=== PATIENT | female | born 1990 | race American Indian/Alaskan Native ===

== ENCOUNTER 2019-01-26 18:25 | Emergency (ER) | payer SELFPAY ==
[2019-01-26 19:14] VITALS: BP 135/86
== END 2019-01-26 19:29 | disposition left against medical advice (07) ==
LOC: ED 18:25
DX: R45.851 Suicidal ideations (principal); Z53.21 Procedure and treatment not carried out due to patient leaving prior to being seen by health care provider

== ENCOUNTER 2020-09-16 07:49 | Emergency (ER) | payer SELFPAY ==
[2020-09-16] MEDS ORDERED: ONDANSETRON 4 MG/2 ML INJ IV ONE (08:07)
[2020-09-16] MEDS ORDERED: SODIUM CHLORIDE 0.9% 1000 ML 1,000 ML IV ONE (08:07)
[2020-09-16 08:16] LABS: Basophils # (Auto) 0.1 K/mm3 (0.0-0.1); Basophils % (Auto) 1.1 % (0.0-1.8); Eosinophils % (Auto) 0.7 % (0.0-4.3); Hematocrit 43.9 % (30.3-42.9); Hemoglobin 14.9 gm/dl (10.1-14.3); Lymphocytes % (Auto) 49.8 % (13.4-35.0); Mean Corpuscular HGB Conc 34 % (30-34); Mean Corpuscular Volume 84 fl (79-97); Monocytes # (Auto) 0.6 K/mm3 (0.0-0.8); Monocytes % (Auto) 9.1 % (0.0-7.3); Platelet Count 429 K/mm3 (140-440); Red Blood Count 5.25 M/mm3 (3.65-5.03); Red Cell Distribution Width 13.8 % (13.2-15.2)
--- NOTE | 2020-09-16 08:16 | Emergency Department Report ---
ED General Adult HPI - General Chief complaint: Nausea/Vomiting/Diarrhea Stated complaint: VOMIT/NAUSEA Time Seen by Provider: 09/16/20 08:04 Source: patient Mode of arrival: Ambulatory Limitations: No Limitations - History of Present Illness Initial comments: 29-year-old female that refers nausea and vomiting intermittently for the past few days without diarrhea or significant abdominal pain. She states she takes the control pill and has not observed any change in her menstrual pattern. She has had no fever. She does not complain of headache at this time. Apparently she was here for similar symptoms in the past and was treated symptomatically. Her laboratory work-up at that time was essentially unrevealing. She does not complain of any type symptoms. She does not refer significant cough. -: Gradual, days(s) Severity scale (0 -10): 0 Associated Symptoms: denies other symptoms, nausea/vomiting Treatments Prior to Arrival: none - Related Data Previous Rx's Medication Instructions Recorded Last Taken Type Ondansetron [Zofran Odt] 4 mg PO Q8HR PRN #15 tab.rapdis 05/14/20 Unknown Rx Ondansetron [Zofran Odt] 4 mg PO Q8HR #7 tab.rapdis 09/16/20 Unknown Rx Allergies Allergy/AdvReac Type Severity Reaction Status Date / Time No Known Allergies Allergy Verified 05/14/20 02:52 ED Review of Systems ROS: Stated complaint: VOMIT/NAUSEA Other details as noted in HPI Constitutional: denies: chills, fever Eyes: denies: eye pain, eye discharge, vision change ENT: denies: ear pain, throat pain Respiratory: denies: cough, shortness of breath, wheezing Cardiovascular: denies: chest pain, palpitations Endocrine: no symptoms reported Gastrointestinal: nausea, vomiting. denies: abdominal pain, diarrhea Genitourinary: denies: urgency, dysuria, discharge, abnormal menses Musculoskeletal: denies: back pain, joint swelling, arthralgia Skin: denies: rash, lesions Neurological: denies: headache, weakness, paresthesias Psychiatric: denies: anxiety, depression Hematological/Lymphatic: denies: easy bleeding, easy bruising ED Past Medical Hx - Past Medical History Previous Medical History?: Yes Additional medical history: Vaginal delivery x 1 - Surgical History Past Surgical History?: No Additional Surgical History: pt denies - Social History Smoking Status: Never Smoker Substance Use Type: Alcohol - Medications Home Medications: Home Medications Medication Instructions Recorded Confirmed Last Taken Type Ondansetron [Zofran Odt] 4 mg PO Q8HR PRN #15 tab.rapdis 05/14/20 Unknown Rx Ondansetron [Zofran Odt] 4 mg PO Q8HR #7 tab.rapdis 09/16/20 Unknown Rx ED Physical Exam - General Limitations: No Limitations General appearance: alert, in no apparent distress - Head Head exam: Present: atraumatic, normocephalic - Eye Eye exam: Present: normal appearance. Absent: scleral icterus - ENT ENT exam: Present: mucous membranes moist - Neck Neck exam: Present: normal inspection - Respiratory Respiratory exam: Present: normal lung sounds bilaterally. Absent: respiratory distress - Cardiovascular Cardiovascular Exam: Present: normal rhythm, tachycardia (Heart rate 100-105 on my encounter). Absent: systolic murmur, diastolic murmur, rubs, gallop - GI/Abdominal GI/Abdominal exam: Present: soft, normal bowel sounds. Absent: distended, tenderness, guarding, rebound, rigid - Extremities Exam Extremities exam: Present: normal inspection - Back Exam Back exam: Present: normal inspection - Neurological Exam Neurological exam: Present: alert, oriented X3, CN II-XII intact. Absent: motor sensory deficit - Psychiatric Psychiatric exam: Present: normal affect, normal mood - Skin Skin exam: Present: warm, dry, intact, normal color. Absent: rash ED Course Vital Signs 09/16/20 09/16/20 09/16/20 07:51 08:05 08:30 Temperature 98.0 F Pulse Rate 122 H 96 H Respiratory 20 14 13 Rate Blood Pressure 128/90 Blood Pressure 125/91 [Right] O2 Sat by Pulse 98 95 Oximetry 09/16/20 09/16/20 09/16/20 09:00 09:30 09:35 Temperature Pulse Rate 94 H Respiratory 13 14 Rate Blood Pressure 117/82 103/70 Blood Pressure [Right] O2 Sat by Pulse 100 Oximetry 09/16/20 09/16/20 09/16/20 10:02 10:30 11:00 Temperature Pulse Rate 103 H 120 H Respiratory 16 17 Rate Blood Pressure 103/70 109/71 103/70 Blood Pressure [Right] O2 Sat by Pulse 100 97 99 Oximetry 09/16/20 09/16/20 09/16/20 11:30 12:00 12:37 Temperature Pulse Rate 94 H 102 H 101 H Respiratory 15 15 Rate Blood Pressure 119/66 99/52 Blood Pressure [Right] O2 Sat by Pulse 99 98 Oximetry 09/16/20 13:00 Temperature Pulse Rate 103 H Respiratory 15 Rate Blood Pressure 126/91 Blood Pressure [Right] O2 Sat by Pulse 99 Oximetry - Reevaluation(s) Reevaluation #1: Heart rate now 93. No further nausea. Patient ready for discharge. 09/16/20 13:31 ED Medical Decision Making - Lab Data Result diagrams: 09/16/20 07:58 09/16/20 08:09 Laboratory Results - last 24 hr 09/16/20 07:58 WBC 6.1 RBC 5.25 H Hgb 14.9 H Hct 43.9 H MCV 84 MCH 29 MCHC 34 RDW 13.8 Plt Count 429 Lymph % (Auto) 49.8 H [place] % (Auto) 9.1 H Eos % (Auto) 0.7 Baso % (Auto) 1.1 Lymph # (Auto) 3.0 [place] # (Auto) 0.6 Eos # (Auto) 0.0 Baso # (Auto) 0.1 Seg Neutrophils % 39.3 L Seg Neutrophils # 2.4 Laboratory Results - last 24 hr 09/16/20 09/16/20 09/16/20 07:58 07:58 08:09 WBC 6.1 RBC 5.25 H Hgb 14.9 H Hct 43.9 H MCV 84 MCH 29 MCHC 34 RDW 13.8 Plt Count 429 Lymph % (Auto) 49.8 H [place] % (Auto) 9.1 H Eos % (Auto) 0.7 Baso % (Auto) 1.1 Lymph # (Auto) 3.0 [place] # (Auto) 0.6 Eos # (Auto) 0.0 Baso # (Auto) 0.1 Seg Neutrophils % 39.3 L Seg Neutrophils # 2.4 Sodium 144 Potassium 4.4 Chloride 102.1 Carbon Dioxide 27 Anion Gap 19 BUN 8 Creatinine 0.6 Estimated GFR > 60 BUN/Creatinine Ratio 13 Glucose 125 H Calcium 10.2 Magnesium 2.00 Total Bilirubin 0.30 Direct Bilirubin < 0.2 Indirect Bilirubin 0.1 AST 38 ALT 39 Alkaline Phosphatase 81 Total Protein 8.0 Albumin 5.1 H Albumin/Globulin Ratio 1.8 Lipase 26 26 HCG, Qual Urine Color Urine Turbidity Urine pH Ur Specific [place] Urine Protein Urine Glucose (UA) Urine Ketones Urine Blood Urine Nitrite Urine Bilirubin Urine Urobilinogen Ur Leukocyte Esterase Urine WBC (Auto) Urine RBC (Auto) U Epithel Cells (Auto) Urine Mucus Urine HCG, Qual Urine Opiates Screen Urine Methadone Screen Ur Barbiturates Screen Ur Phencyclidine Scrn Ur Amphetamines Screen U Benzodiazepines Scrn Urine Cocaine Screen U Marijuana (THC) Screen Drugs of Abuse Note 09/16/20 09/16/20 09/16/20 08:09 Unknown Unknown WBC RBC Hgb Hct MCV MCH MCHC RDW Plt Count Lymph % (Auto) [place] % (Auto) Eos % (Auto) Baso % (Auto) Lymph # (Auto) [place] # (Auto) Eos # (Auto) Baso # (Auto) Seg Neutrophils % Seg Neutrophils # Sodium Potassium Chloride Carbon Dioxide Anion Gap BUN Creatinine Estimated GFR BUN/Creatinine Ratio Glucose Calcium Magnesium Total Bilirubin Direct Bilirubin Indirect Bilirubin AST ALT Alkaline Phosphatase Total Protein Albumin Albumin/Globulin Ratio Lipase HCG, Qual Negative Urine Color Yellow Urine Turbidity Clear Urine pH 8.0 H Ur Specific Dell 1.016 Urine Protein 30 mg/dl Urine Glucose (UA) Neg Urine Ketones Neg Urine Blood Neg Urine Nitrite Neg Urine Bilirubin Neg Urine Urobilinogen < 2.0 Ur Leukocyte Esterase Neg Urine WBC (Auto) < 1.0 Urine RBC (Auto) 1.0 U Epithel Cells (Auto) 2.0 Urine Mucus Few Urine HCG, Qual Negative Urine Opiates Screen Negative Urine Methadone Screen Negative Ur Barbiturates Screen Negative Ur Phencyclidine Scrn Negative Ur Amphetamines Screen Negative U Benzodiazepines Scrn Negative Urine Cocaine Screen Negative U Marijuana (THC) Screen Negative Drugs of Abuse Note Disclamer - EKG Data -: EKG Interpreted by Me EKG shows normal: sinus rhythm, axis, intervals, QRS complexes, ST-T waves Rate: tachycardia - EKG Data Interpretation: normal EKG (Essentially normal except for sinus tachycardia) Critical care attestation.: If time is entered above; I have spent that time in minutes in the direct care of this critically ill patient, excluding procedure time. ED Disposition Clinical Impression: Dehydration Vomiting Qualifiers: Vomiting type: unspecified Vomiting Intractability: non-intractable Nausea presence: with nausea Qualified Code(s): R11.2 - Nausea with vomiting, unspecified Disposition: DC- TO HOME OR SELFCARE Is pt being admited?: No Does the pt Need Aspirin: No Condition: Stable Instructions: Nausea and Vomiting, Adult, Dehydration, Adult Additional Instructions: Return any acute change or problem. Prescription for nausea if needed. Follow- up with primary care physician. Prescriptions: Ondansetron [Zofran Odt] 4 mg PO Q8HR #7 tab.rapdis Referrals: PRIMARY CARE, [Primary Care Provider] - 2-3 Days Time of Disposition: 13:33
[2020-09-16 08:41] LABS: Alanine Aminotransferase 39 units/L (7-56); Albumin 5.1 g/dL (3.9-5); Blood Urea Nitrogen 8 mg/dL (7-17); Calcium 10.2 mg/dL (8.4-10.2); Hemolysis Index 5
[2020-09-16 08:50] LABS: BUN/Creatinine Ratio 13; Bilirubin,Direct < 0.2 mg/dL (0-0.2)
[2020-09-16 10:23] LABS: Bilirubin,Urine NEG (Negative); Blood,Urine NEG (Negative); Color,Urine Yellow (Yellow); Mucus,Urine FEW /HPF; Urobilinogen,Urine < 2.0 mg/dL (<2.0); WBC,Urine < 1.0 /HPF (0.0-6.0)
[2020-09-16 10:30] LABS: Amphetamine Screen,Urine Negative; Benzodiazepines Screen,Urine Negative; Cannabinoid Screen,Urine Negative; Cocaine Screen,Urine Negative; Methadone Screen,Urine Negative; Opiate Screen,Urine Negative
[2020-09-16 10:32] LABS: HCG Qualitative,Urine Negative (Negative)
[2020-09-16 13:30] VITALS: BP 126/91
== END 2020-09-16 13:00 | disposition home or self-care (01) ==
LOC: ED 07:49
DX: E86.0 Dehydration (principal); R11.2 Nausea with vomiting, unspecified; Z79.899 Other long term (current) drug therapy
CPT/HCPCS: 36415; 80048; 80076; 80307; 81001; 81025; 83690; 83735; 84703; 85025; 93005; 96361; 96374; 99283; J2405; J7030

== ENCOUNTER 2020-10-03 14:39 | Inpatient (IN) | payer SELFPAY ==
[2020-10-03] MEDS ORDERED: ONDANSETRON 4 MG ODT TAB ONE (15:21)
[2020-10-03] MEDS ORDERED: ONDANSETRON 4 MG ODT TAB PO ONE (15:24)
--- NOTE | 2020-10-03 15:24 | Event Note ---
ED Screening Note Date of service: 10/03/20 Time: 15:23 ED Screening Note: 29-year-old -Algerian female presents to the emergency room complaining of nausea vomiting since last night denies any diarrhea. This initial assessment/diagnostic orders/clinical plan/treatment(s) is/are subject to change based on patients health status, clinical progression and re- assessment by fellow clinical providers in the ED. Further treatment and workup at subsequent clinical providers discretion. Patient/guardian urged not to elope from the ED as their condition may be serious if not clinically assessed and managed. Initial orders include:
[2020-10-03 16:00] LABS: Basophils % (Auto) 0.6 % (0.0-1.8); Eosinophils # (Auto) 0.1 K/mm3 (0.0-0.4); Eosinophils % (Auto) 1.3 % (0.0-4.3); Hematocrit 41.1 % (30.3-42.9); Hemoglobin 14.3 gm/dl (10.1-14.3); Lymphocytes % (Auto) 26.3 % (13.4-35.0); Mean Corpuscular HGB Conc 35 % (30-34); Mean Corpuscular Volume 83 fl (79-97); Monocytes # (Auto) 0.5 K/mm3 (0.0-0.8); Monocytes % (Auto) 6.9 % (0.0-7.3); Platelet Count 400 K/mm3 (140-440); Red Blood Count 4.97 M/mm3 (3.65-5.03); Red Cell Distribution Width 13.7 % (13.2-15.2)
[2020-10-03 16:25] LABS: Alanine Aminotransferase 37 units/L (7-56); Albumin 4.7 g/dL (3.9-5); Blood Urea Nitrogen 9 mg/dL (7-17); Calcium 9.5 mg/dL (8.4-10.2); Hemolysis Index 5
[2020-10-03 16:26] LABS: BUN/Creatinine Ratio 15
[2020-10-03] MEDS ORDERED: METOCLOPRAMIDE 10 MG/2 ML INJ IV ONE (17:29)
[2020-10-03] MEDS ORDERED: PANTOPRAZOLE 40 MG INJ IV ONE (17:29)
[2020-10-03] MEDS ORDERED: diphenhydrAMINE 50 MG/ML VIAL IV ONE (17:29)
[2020-10-03] MEDS ORDERED: SODIUM CHLORIDE 0.9% 1000 ML 1,000 ML IV ONE ×2 (17:29→20:38)
[2020-10-03] MEDS ORDERED: ONDANSETRON 4 MG/2 ML INJ IV ONE (18:53)
[2020-10-03 19:17] LABS: Bilirubin,Urine NEG (Negative); Blood,Urine NEG (Negative); Color,Urine Yellow (Yellow); Mucus,Urine FEW /HPF; Urobilinogen,Urine < 2.0 mg/dL (<2.0); WBC,Urine < 1.0 /HPF (0.0-6.0)
--- NOTE | 2020-10-03 19:18 | Emergency Department Report ---
<ERIC ROJO - Last Filed: 10/03/20 19:18> ED General Adult HPI - General Chief complaint: Nausea/Vomiting/Diarrhea Stated complaint: VOMITING Time Seen by Provider: 10/03/20 15:22 Source: patient Mode of arrival: Ambulatory Limitations: No Limitations - History of Present Illness Initial comments: Patient is a 29-year-old female presents emergency room complaints of nausea vomiting that began at midnight last night. She has had multiple episodes of vomiting and is unable to tolerate p.o. intake. She states that she has had a couple episodes of diarrhea. She states that she has generalized abdominal pain. She denies any fever, dysuria, hematochezia, hematemesis, melena. She denies any past abdominal surgical history. She denies any sick contacts, recent travel, antibiotic use. No past medical history. No allergies to medications. She states her last menstrual cycle was 09/02/2020. She is a non- smoker. She endorses alcohol use twice a week. She states that she had 3 glasses of wine last night. Severity scale (0 -10): 2 - Related Data Previous Rx's Medication Instructions Recorded Last Taken Type Ondansetron [Zofran Odt] 4 mg PO Q8HR PRN #15 tab.rapdis 05/14/20 Unknown Rx Ondansetron [Zofran Odt] 4 mg PO Q8HR #7 tab.rapdis 09/16/20 Unknown Rx Allergies Allergy/AdvReac Type Severity Reaction Status Date / Time No Known Allergies Allergy Verified 05/14/20 02:52 ED Review of Systems Comment: All other systems reviewed and negative ED Past Medical Hx - Past Medical History Previous Medical History?: No Additional medical history: pt denies - Surgical History Additional Surgical History: pt denies - Social History Smoking Status: Never Smoker - Medications Home Medications: Home Medications Medication Instructions Recorded Confirmed Last Taken Type Ondansetron [Zofran Odt] 4 mg PO Q8HR PRN #15 tab.rapdis 05/14/20 Unknown Rx Ondansetron [Zofran Odt] 4 mg PO Q8HR #7 tab.rapdis 09/16/20 Unknown Rx ED Physical Exam - General Limitations: No Limitations General appearance: alert, other (actively vomiting) - Head Head exam: Present: atraumatic, normocephalic - Eye Eye exam: Present: normal appearance - ENT ENT exam: Present: mucous membranes dry - Respiratory Respiratory exam: Present: normal lung sounds bilaterally. Absent: respiratory distress, wheezes, rales, rhonchi, stridor, chest wall tenderness, accessory muscle use, decreased breath sounds, prolonged expiratory - Cardiovascular Cardiovascular Exam: Present: regular rate, normal rhythm, normal heart sounds. Absent: systolic murmur, diastolic murmur, rubs, gallop - GI/Abdominal GI/Abdominal exam: Present: soft, tenderness (mild generalized), normal bowel sounds. Absent: distended, guarding, rebound, rigid - Neurological Exam Neurological exam: Present: alert, oriented X3 - Psychiatric Psychiatric exam: Present: normal affect, normal mood - Skin Skin exam: Present: warm, dry, intact ED Medical Decision Making - Lab Data Result diagrams: 10/03/20 15:32 10/03/20 15:32 Lab Results 10/03/20 10/03/20 Range/Units 15:32 15:32 WBC 7.6 (4.5-11.0) K/mm3 RBC 4.97 (3.65-5.03) M/mm3 Hgb 14.3 (10.1-14.3) gm/dl Hct 41.1 (30.3-42.9) % MCV 83 (79-97) fl MCH 29 (28-32) pg MCHC 35 H (30-34) % RDW 13.7 (13.2-15.2) % Plt Count 400 (140-440) K/mm3 Lymph % (Auto) 26.3 (13.4-35.0) % [place] % (Auto) 6.9 (0.0-7.3) % Eos % (Auto) 1.3 (0.0-4.3) % Baso % (Auto) 0.6 (0.0-1.8) % Lymph # (Auto) 2.0 (1.2-5.4) K/mm3 [place] # (Auto) 0.5 (0.0-0.8) K/mm3 Eos # (Auto) 0.1 (0.0-0.4) K/mm3 Baso # (Auto) 0.0 (0.0-0.1) K/mm3 Seg Neutrophils % 64.9 (40.0-70.0) % Seg Neutrophils # 4.9 (1.8-7.7) K/mm3 Sodium 144 (137-145) mmol/L Potassium 3.8 (3.6-5.0) mmol/L Chloride 103.9 (98-107) mmol/L Carbon Dioxide 24 (22-30) mmol/L Anion Gap 20 mmol/L BUN 9 (7-17) mg/dL Creatinine 0.6 (0.6-1.2) mg/dL Estimated GFR > 60 ml/min BUN/Creatinine Ratio 15 % Glucose 95 (65-100) mg/dL Calcium 9.5 (8.4-10.2) mg/dL Total Bilirubin 0.20 (0.1-1.2) mg/dL AST 27 (5-40) units/L ALT 37 (7-56) units/L Alkaline Phosphatase 79 (35-129) units/L Total Protein 7.8 (6.3-8.2) g/dL Albumin 4.7 (3.9-5) g/dL Albumin/Globulin Ratio 1.5 % Lipase 22 (13-60) units/L - Medical Decision Making Patient is a 29-year-old female presents emergency room complaints of nausea vomiting that began at midnight last night. She has had multiple episodes of vomiting and is unable to tolerate p.o. intake. She states that she has had a couple episodes of diarrhea. She states that she has generalized abdominal pain. She denies any fever, dysuria, hematochezia, hematemesis, melena. She denies any past abdominal surgical history. She denies any sick contacts, recent travel, antibiotic use. No past medical history. No allergies to medications. She states her last menstrual cycle was 09/02/2020. She is a non- smoker. She endorses alcohol use twice a week. She states that she had 3 glasses of wine last night. Vitals with mild tachycardia, otherwise stable. Labs are within normal limits. Patient given multiple antiemetics and continues to have vomiting. CT abdomen pelvis ordered to rule out any intra-abdominal pathology. Patient signed out to Keya Vazquez PA-C pending CT abdomen pelvis results - Differential Diagnosis gastroenteritis, gastritis, colitis, appendicitis, cholecystitis, viral ED Disposition Clinical Impression: Coffee ground emesis, Intractable nausea and vomiting, Rectal abscess Abdominal pain Qualifiers: Abdominal location: generalized Qualified Code(s): R10.84 - Generalized abdominal pain Fever Qualifiers: Fever type: unspecified Qualified Code(s): R50.9 - Fever, unspecified Disposition: DC-09 OP ADMIT IP TO THIS HOSP Condition: Critical <JOE VAZQUEZ - Last Filed: 10/03/20 20:37> ED Medical Decision Making - Lab Data Result diagrams: 10/03/20 15:32 10/03/20 15:32 - Radiology Data Radiology results: report reviewed Referring Physician:ERIC ROJOPatient Name:CAPRICE HEPatient ID:[id number] of :[id number]:FemaleAccession:[id number] Date:[id number] Status:[place] [address] Cat Scan Report Signed Patient: CAPRICE HE MR#: [id number] : 1990 Acct:[id number] Age/Sex: 29 / F ADM Date: 10/03/20 Loc: ED Attending Dr: Ordering Physician: WILL RASHID Date of Service: 10/03/20 Procedure(s): CT abdomen pelvis w con Accession Number(s): [id number] cc: WILL RASHID CT ABDOMEN AND PELVIS WITH CONTRAST INDICATION / CLINICAL INFORMATION: n/v/d, abd pain. TECHNIQUE: Axial CT images were obtained through the abdomen and pelvis after IV contrast. All CT scans at this location are performed using CT dose reduction for ALARA by means of automated exposure control. COMPARISON: None available. FINDINGS: LOWER CHEST: No significant abnormality. LIVER: No significant abnormality. GALLBLADDER: No significant abnormality. BILE DUCTS: No significant abnormality. PANCREAS: No significant abnormality. SPLEEN: No significant abnormality. ADRENALS: No significant abnormality. RIGHT KIDNEY / URETER: No significant abnormality. LEFT KIDNEY / URETER: No significant abnormality. STOMACH / SMALL BOWEL: Small hiatal hernia. COLON: Thickening is noted throughout the colonic wall with edema. There is a 2.7 x 3.7 cm patulous area of the rectal vault to the right (series 2 image 144) which appears to be outlined by the colonic wall. Mild perirectal fat stranding is noted in this region. APPENDIX: The appendix is not well-visualized on this exam. There is no significant fat stranding noted in the right lower quadrant. PERITONEUM: No free fluid. No free air. No fluid collection. LYMPH NODES: No significant adenopathy. AORTA / ARTERIES: No significant abnormality. IVC / VEINS: No significant abnormality. URINARY BLADDER: No significant abnormality. REPRODUCTIVE ORGANS: Simple left ovarian cyst measures 4 cm. ADDITIONAL FINDINGS: None. SKELETAL SYSTEM: No significant abnormality. IMPRESSION: 1. Lopez colonic inflammatory changes and edema are noted which may represent an infectious/inflammatory colitis. 2. Patulous outpouching to the right of the rectal vault with mild local fat stranding may represent a large rectal diverticula versus developing rectal abscess. Clinical correlation is need ed. Signer Name: Cipriano Grande MD Signed: 10/03/2020 8:12 PM Workstation Name: [id number] Transcribed By: ROXANA Dictated By: CIPRIANO GRANDE Electronically Authenticated By: CIPRIANO GRANDE Signed Date/Time: 10/03/202011 DD/ 00 TD/TT: <DAMIR WINCHESTER III - Last Filed: 10/03/20 21:30> ED General Adult HPI - General PUI?: No ED Review of Systems ROS: Stated complaint: VOMITING Other details as noted in HPI ED Course Vital Signs 10/03/20 10/03/20 15:15 19:11 Temperature 98.3 F 99.1 F Pulse Rate 109 H 106 H Respiratory 18 17 Rate Blood Pressure 141/97 Blood Pressure 160/95 [Right] O2 Sat by Pulse 100 100 Oximetry - Reevaluation(s) Reevaluation #1: I reviewed the findings and management of this patient in real-time and I have personally seen and examined this patient and participated in the decision making for this patient with the [facility]. Patient is a 29-year-old female presents emergency room with complaints of nausea, vomiting, diarrhea, generalized abdominal pain. Patient has labs done which were essentially unremarkable. Patient had multiple bouts of vomiting in the ER. Patient has intractable nausea and vomiting. Patient complained of coffee-ground emesis while in the ER. I examined the patient. Patient's lung sounds are clear. Patient has generalized abdominal tenderness. Patient's lung sounds are clear. Patient's CV exam shows normal S1-S2. No murmurs noted. Patient had a rectal exam done by the [facility] and a was negative for occult blood. Patient had a Hemoccult done on her vomitus and it was positive for occult blood. Patient had a CT scan of the abdomen done which showed pancolitis and forming rectal abscess. Surgery consulted and surgery recommends admission with IV antibiotics and they will see the patient in morning. Patient admitted to the hospitalist service. I discussed all results with patient. I discussed plan of care with patient. Patient agrees with plan of care and admission. Patient to be admitted to the hospitalist service. 10/03/20 21:21 - Consultations Consultation #1: Discussed case with general surgery. General surgery recommends admission and IV antibiotics and will see the patient in the morning. 10/03/20 21:10 Consultation #2: Hospitalist consulted for admission. Hospitalist to admit patient. 10/03/20 21:18 ED Medical Decision Making - Lab Data Result diagrams: 10/03/20 15:32 10/03/20 15:32 Critical Care Time: Yes Critical care time in (mins) excluding proc time.: 35 Critical care attestation.: If time is entered above; I have spent that time in minutes in the direct care of this critically ill patient, excluding procedure time. Critical Care Time: 35 minutes ED Disposition Is pt being admited?: Yes Does the pt Need Aspirin: No Time of Disposition: 21:29
[2020-10-03 19:25] LABS: HCG Qualitative,Urine Negative (Negative)
[2020-10-03] MEDS ORDERED: PROCHLORPERAZINE EDISYLATE 10 MG/2 ML VIAL IV ONE (19:26)
--- NOTE | 2020-10-03 20:16 | Cat Scan Report ---
CT ABDOMEN AND PELVIS WITH CONTRAST INDICATION / CLINICAL INFORMATION: n/v/d, abd pain. TECHNIQUE: Axial CT images were obtained through the abdomen and pelvis after IV contrast. All CT scans at this location are performed using CT dose reduction for ALARA by means of automated exposure control. COMPARISON: None available. FINDINGS: LOWER CHEST: No significant abnormality. LIVER: No significant abnormality. GALLBLADDER: No significant abnormality. BILE DUCTS: No significant abnormality. PANCREAS: No significant abnormality. SPLEEN: No significant abnormality. ADRENALS: No significant abnormality. RIGHT KIDNEY / URETER: No significant abnormality. LEFT KIDNEY / URETER: No significant abnormality. STOMACH / SMALL BOWEL: Small hiatal hernia. COLON: Thickening is noted throughout the colonic wall with edema. There is a 2.7 x 3.7 cm patulous a stephen of the rectal vault to the right (series 2 image 144) which appears to be outlined by the colonic wall. Mild perirectal fat stranding is noted in this region. APPENDIX: The appendix is not well-visualized on this exam. There is no significant fat stranding not ed in the right lower quadrant. PERITONEUM: No free fluid. No free air. No fluid collection. LYMPH NODES: No significant adenopathy. AORTA / ARTERIES: No significant abnormality. IVC / VEINS: No significant abnormality. URINARY BLADDER: No significant abnormality. REPRODUCTIVE ORGANS: Simple left ovarian cyst measures 4 cm. ADDITIONAL FINDINGS: None. SKELETAL SYSTEM: No significant abnormality. IMPRESSION: 1. Lopez colonic inflammatory changes and edema are noted which may represent an infectious/inflammator y colitis. 2. Patulous outpouching to the right of the rectal vault with mild local fat stranding may represent a large rectal diverticula versus developing rectal abscess. Clinical correlation is needed. Signer Name: Cipriano Perez MD Signed: 10/03/2020 8:12 PM Workstation Name: [id number]
[2020-10-03] MEDS ORDERED: metroNIDAZOLE/NS 500 MG/100 ML 500 MG/100 ML BAG IV ONE (20:38)
[2020-10-03] MEDS ORDERED: MORPHINE 2 MG/1 ML INJ IV PRN (21:53)
[2020-10-03] MEDS ORDERED: ACETAMINOPHEN 325 MG TAB PO PRN (21:53)
[2020-10-03] MEDS ORDERED: ONDANSETRON 4 MG/2 ML INJ IV PRN (21:53)
--- NOTE | 2020-10-03 22:00 | History and Physical Report ---
History of Present Illness Date of examination: 10/03/20 Date of admission: 10/03/2020 Chief complaint: Nausea and Vomiting Abdominal pain History of present illness: 29-year-old -[place] female presented to the emergency room today complaining of for nausea and vomiting and associated abdominal pain. Patient has been ongoing since midnight. Patient has also been having coffee-ground emesis. She has been unable to tolerate oral intake and has also had a few episodes of diarrhea. Abdominal pain is said to be generalized, no known relieving or exacerbating factor. She denies any recent travel no sick contacts. Denies any hematuria or dysuria, no fever or chills, no bright red blood per rectum and no melena. Patient denies any chest pain or shortness of breath, no headache or dizziness. She denies any recent use of antibiotics. Last menstrual period was 09/02/2020 Work-up in the emergency room today CT scan of the abdomen and pelvis reveals pancolitis and a possible developing rectal abscess. General surgeon Dr. Mckeon has been consulted by the ER physician. Patient has been started on IV fluid, IV analgesic medication and empiric IV antibiotics. Past History Past Medical History: No medical history Past Surgical History: No surgical history Social history: no significant social history Family history: no significant family history Medications and Allergies Allergies Allergy/AdvReac Type Severity Reaction Status Date / Time No Known Allergies Allergy Verified 05/14/20 02:52 Home Medications Medication Instructions Recorded Confirmed Last Taken Type Ondansetron [Zofran Odt] 4 mg PO Q8HR PRN #15 tab.rapdis 05/14/20 Unknown Rx Ondansetron [Zofran Odt] 4 mg PO Q8HR #7 tab.rapdis 09/16/20 Unknown Rx Active Meds: Active Medications Acetaminophen (Tylenol) 650 mg PO Q4H PRN PRN Reason: Pain MILD(1-3)/Fever >100.5/JOYNER Sodium Chloride (Nacl 0.9% 1000 Ml) 1,000 mls @ 125 mls/hr IV DIRECT DOV Morphine Sulfate (Morphine) 2 mg IV Q4H PRN PRN Reason: Pain, Moderate (4-6) Ondansetron HCl (Zofran) 4 mg IV Q8H PRN PRN Reason: Nausea And Vomiting Sodium Chloride (Sodium Chloride Flush Syringe 10 Ml) 10 ml IV BID DOV Sodium Chloride (Sodium Chloride Flush Syringe 10 Ml) 10 ml IV PRN PRN PRN Reason: LINE FLUSH Review of Systems Constitutional: fever, no chills Ears, nose, mouth and throat: no nasal congestion, no sore throat Cardiovascular: no chest pain, no palpitations Respiratory: no cough, no shortness of breath Gastrointestinal: abdominal pain, nausea, vomiting, coffee ground emesis Genitourinary Female: no dysuria, no urinary frequency, no hematuria, no nocturia Musculoskeletal: no neck pain, no low back pain Integumentary: no rash, no pruritis Neurological: no headaches, no confusion Psychiatric: no anxiety, no depression Exam - Constitutional Vitals: Temp Pulse Resp BP Pulse Ox 99.1 F 106 H 17 160/95 100 10/03/20 19:11 10/03/20 19:11 10/03/20 19:11 10/03/20 19:11 10/03/20 19:11 General appearance: Present: no acute distress, well-nourished - EENT Eyes: Present: PERRL, EOM intact. Absent: scleral icterus ENT: hearing intact, clear oral mucosa, dentition normal - Neck Neck: Present: supple, normal ROM - Respiratory Respiratory effort: normal Respiratory: bilateral: CTA - Cardiovascular Rhythm: regular Heart Sounds: Present: S1 & S2. Absent: gallop, systolic murmur, diastolic murmur, rub - Extremities Extremities: no ischemia, pulses intact, pulses symmetrical, No edema, Full ROM Peripheral Pulses: within normal limits - Abdominal General gastrointestinal: Present: soft, non-tender, non-distended, normal bowel sounds. Absent: mass - Integumentary Integumentary: Present: clear, warm, dry. Absent: rash - Musculoskeletal Musculoskeletal: strength equal bilaterally - Psychiatric Psychiatric: appropriate mood/affect, intact judgment & insight, memory intact, cooperative - Neurologic Neurologic: CNII-XII intact, no focal deficits, moves all extremities Results - Labs CBC & Chem 7: 10/03/20 15:32 10/03/20 15:32 Labs: Abnormal lab results 10/03/20 10/03/20 Range/Units 15:32 19:01 MCHC 35 H (30-34) % Urine pH 8.0 H (5.0-7.0) Assessment and Plan - Patient Problems (1) Abdominal pain Current Visit: Yes Status: Acute Qualifiers: Abdominal location: generalized Qualified Code(s): R10.84 - Generalized abdominal pain Plan to address problem: Possibly secondary to the intractable nausea and vomiting ,pancolitis. Patient placed on IV analgesic medication. (2) Coffee ground emesis Current Visit: Yes Status: Acute Plan to address problem: Possibly secondary to the intractable nausea and vomiting. We will place a consult to gastroenterology for evaluation. We will place patient on proton pump inhibitor. Patient made n.p.o. (3) Intractable nausea and vomiting Current Visit: Yes Status: Acute Plan to address problem: Patient has been placed on IV Zofran as needed. (4) Rectal abscess Current Visit: Yes Status: Acute Plan to address problem: Patient placed on empiric IV antibiotics. We await's evaluation and recommendations from general surgery. (5) DVT prophylaxis Current Visit: Yes Status: Acute Plan to address problem: Patient placed on sequential compression device. (6) Full code status Current Visit: Yes Status: Acute
[2020-10-04] MEDS: SODIUM CHLORIDE 0.9% 1000 ML 1,000 ML IV SCH ×2 (01:32→09:24)
[2020-10-04] MEDS ORDERED: PIPERACIL/TAZOBACTA 4.5/NS 100 4.5 GM/100 ML VIAL IV SCH (06:00)
[2020-10-04 07:43] LABS: Basophils % (Auto) 0.1 % (0.0-1.8); Hematocrit 35.6 % (30.3-42.9); Hemoglobin 11.6 gm/dl (10.1-14.3); Lymphocytes # (Auto) 1.4 K/mm3 (1.2-5.4); Mean Corpuscular HGB Conc 33 % (30-34); Mean Corpuscular Volume 84 fl (79-97); Monocytes # (Auto) 0.9 K/mm3 (0.0-0.8); Monocytes % (Auto) 5.4 % (0.0-7.3); Platelet Count 352 K/mm3 (140-440); Red Blood Count 4.25 M/mm3 (3.65-5.03); Red Cell Distribution Width 13.3 % (13.2-15.2)
[2020-10-04 07:50] LABS: INR 1.07 (0.87-1.13)
[2020-10-04 07:54] LABS: Blood Urea Nitrogen 6 mg/dL (7-17); Calcium 8.4 mg/dL (8.4-10.2); Hemolysis Index 5
[2020-10-04 08:01] LABS: BUN/Creatinine Ratio 10
[2020-10-04 08:27] VITALS: BP 107/67
[2020-10-04] MEDS ORDERED: PANTOPRAZOLE 40 MG INJ IV SCH (10:00)
--- NOTE | 2020-10-04 10:28 | Consultation ---
History of Present Illness Consult date: 10/04/20 Reason for consult: other (I am asked to evaluate this patient for a possible early perirectal abcess.) - History of present illness History of present illness: this is a very pleasant 29 year old female who present to the ER with nausea and vomiting, normal WBC, she had a CT of the abd and pelvis which was read as having some question of perirectal inflammation/stranding and concern for possible early perirectal abcess, I have reviewed the CT and spoken with the patrol conductor Radiologist and reviewed the CT and it demonstrates a left ovarian cyst, the anus and rectum appear normal, the colon is mildly thickened but this can be a normal variant according to the Radiologist patrol conductor. She feels better today with hydration, her pain is less, She does NOT have any evidence of perirectal abcess or divertuculum of rectum. She has not had her period for three weeks, she denies any family hx of inflamm bowel dz. Her WBC felipe to 16 today. Past History Past Medical History: No medical history Past Surgical History: No surgical history Social history: no significant social history Family history: no significant family history Medications and Allergies Allergies Allergy/AdvReac Type Severity Reaction Status Date / Time No Known Allergies Allergy Verified 05/14/20 02:52 Home Medications Medication Instructions Recorded Confirmed Last Taken Type Ondansetron [Zofran Odt] 4 mg PO Q8HR PRN #15 tab.rapdis 05/14/20 Unknown Rx Ondansetron [Zofran Odt] 4 mg PO Q8HR #7 tab.rapdis 09/16/20 Unknown Rx Active Meds: Active Medications Acetaminophen (Tylenol) 650 mg PO Q4H PRN PRN Reason: Pain MILD(1-3)/Fever >100.5/JOYNER Sodium Chloride (Nacl 0.9% 1000 Ml) 1,000 mls @ 125 mls/hr IV DIRECT DOV Last Admin: 10/04/20 09:24 Dose: 125 mls/hr Documented by: Piperacillin Sod/Tazobactam Sod (Zosyn/Ns 4.5gm/100ml) 4.5 gm in 100 mls @ 200 mls/hr IV Q8HR DOV; Protocol Last Admin: 10/04/20 05:30 Dose: 200 mls/hr Documented by: Morphine Sulfate (Morphine) 2 mg IV Q4H PRN PRN Reason: Pain, Moderate (4-6) Ondansetron HCl (Zofran) 4 mg IV Q8H PRN PRN Reason: Nausea And Vomiting Pantoprazole Sodium (Protonix) 40 mg IV BID [facility] Last Admin: 10/04/20 09:24 Dose: 40 mg Documented by: Sodium Chloride (Sodium Chloride Flush Syringe 10 Ml) 10 ml IV BID [facility] Last Admin: 10/04/20 09:27 Dose: 10 ml Documented by: Sodium Chloride (Sodium Chloride Flush Syringe 10 Ml) 10 ml IV PRN PRN PRN Reason: LINE FLUSH Review of Systems - Constitutional other (nausea and vomiting/ improved) Exam Vital Signs Temp Pulse Resp BP Pulse Ox 98.3 F 109 H 18 141/97 100 10/03/20 15:15 10/03/20 15:15 10/03/20 15:15 10/03/20 15:15 10/03/20 15:15 - General physical appearance Positive: no distress - Eyes Positive: PERRL, normal occular movement - ENT Positive: normal pinna, normal nares, normal mucosa, no hearing loss, no congestion - Respiratory Positive: normal expansion, normal respiratory effort, clear to auscultation - Cardiovascular Rhythm: other (sinus tach) Heart Sounds: Present: S1 & S2. Absent: rub, click - Extremities Extremities: no ischemia, pulses symmetrical, No edema Peripheral Pulses: within normal limits - Breasts Breasts: deferred - Abdomen Abdomen: Present: soft, bowel sounds normal, other (no rebound or guarding, mild tenderness to deep palpation LLQ) - Neurologic Neurologic: alert and oriented to time, place and person, motor strength and sensation are grossly intact - Psychiatric Psychiatric: appropriate mood/affect, intact judgment & insight Results - Labs 10/04/20 06:46 10/04/20 06:46 Abnormal lab results 10/03/20 10/03/20 10/04/20 Range/Units 15:32 19:01 06:46 WBC 16.9 H (4.5-11.0) K/mm3 MCH 27 L (28-32) pg MCHC 35 H (30-34) % Lymph % (Auto) 8.0 L (13.4-35.0) % [place] # (Auto) 0.9 H (0.0-0.8) K/mm3 Seg Neutrophils % 86.5 H (40.0-70.0) % Seg Neutrophils # 14.7 H (1.8-7.7) K/mm3 BUN (7-17) mg/dL Glucose (65-100) mg/dL Urine pH 8.0 H (5.0-7.0) 10/04/20 Range/Units 06:46 WBC (4.5-11.0) K/mm3 MCH (28-32) pg MCHC (30-34) % Lymph % (Auto) (13.4-35.0) % [place] # (Auto) (0.0-0.8) K/mm3 Seg Neutrophils % (40.0-70.0) % Seg Neutrophils # (1.8-7.7) K/mm3 BUN 6 L (7-17) mg/dL Glucose 124 H (65-100) mg/dL Urine pH (5.0-7.0) Diabetes panel 10/03/20 10/04/20 Range/Units 15:32 06:46 Sodium 144 141 (137-145) mmol/L Potassium 3.8 3.6 (3.6-5.0) mmol/L Chloride 103.9 105.8 (98-107) mmol/L Carbon Dioxide 24 25 (22-30) mmol/L BUN 9 6 L (7-17) mg/dL Creatinine 0.6 0.6 (0.6-1.2) mg/dL Glucose 95 124 H (65-100) mg/dL Calcium 9.5 8.4 (8.4-10.2) mg/dL AST 27 (5-40) units/L ALT 37 (7-56) units/L Alkaline Phosphatase 79 (35-129) units/L Total Protein 7.8 (6.3-8.2) g/dL Albumin 4.7 (3.9-5) g/dL Calcium panel 10/03/20 10/04/20 Range/Units 15:32 06:46 Calcium 9.5 8.4 (8.4-10.2) mg/dL Albumin 4.7 (3.9-5) g/dL Pituitary panel 10/03/20 10/04/20 Range/Units 15:32 06:46 Sodium 144 141 (137-145) mmol/L Potassium 3.8 3.6 (3.6-5.0) mmol/L Chloride 103.9 105.8 (98-107) mmol/L Carbon Dioxide 24 25 (22-30) mmol/L BUN 9 6 L (7-17) mg/dL Creatinine 0.6 0.6 (0.6-1.2) mg/dL Glucose 95 124 H (65-100) mg/dL Calcium 9.5 8.4 (8.4-10.2) mg/dL Adrenal panel 10/03/20 10/04/20 Range/Units 15:32 06:46 Sodium 144 141 (137-145) mmol/L Potassium 3.8 3.6 (3.6-5.0) mmol/L Chloride 103.9 105.8 (98-107) mmol/L Carbon Dioxide 24 25 (22-30) mmol/L BUN 9 6 L (7-17) mg/dL Creatinine 0.6 0.6 (0.6-1.2) mg/dL Glucose 95 124 H (65-100) mg/dL Calcium 9.5 8.4 (8.4-10.2) mg/dL Total Bilirubin 0.20 (0.1-1.2) mg/dL AST 27 (5-40) units/L ALT 37 (7-56) units/L Alkaline Phosphatase 79 (35-129) units/L Total Protein 7.8 (6.3-8.2) g/dL Albumin 4.7 (3.9-5) g/dL Assessment and Plan nausea and vomiting, left ovarian cyst, NO evidence of perirectal abcess on inflammed rectum as best as I can determine. I am OK with adv diet as tolerated, will follow.Consider GI evaluation.
--- NOTE | 2020-10-04 10:33 | Gastroenterology Consultation ---
History of Present Illness - Reason for Consult Consult date: 10/04/20 n/v/abd pain Requesting physician: ILENE VELASQUEZ - History of Present Illness The patient is a 29 yo female who presents with n/v and generalized abd discomfort for 1 day. Pt reports having recurrent episodes of n/v for the past several months, occurs a couple times per month with improvement in sx's over 1- 2 days. recurrent sx's prior to admission with n/v. reports generalized abd discomfort. Has 1-2 loose bm's per day, but denies diarrhea/hematochezia or bowel habit changes. ct scan on admission showed signs of jeffery-colitis and abnormal rectum (? developing abscess vs diverticulum per report). Denies family h/o IBD/colon cancer, no known sick contacts/recent abx use, or lower gi symptoms otherwise at this time. Past History Past Medical History: No medical history Past Surgical History: No surgical history Social history: no significant social history Family history: no significant family history Medications and Allergies Allergies Allergy/AdvReac Type Severity Reaction Status Date / Time No Known Allergies Allergy Verified 05/14/20 02:52 Home Medications Medication Instructions Recorded Confirmed Last Taken Type Ondansetron [Zofran Odt] 4 mg PO Q8HR PRN #15 tab.rapdis 05/14/20 Unknown Rx Ondansetron [Zofran Odt] 4 mg PO Q8HR #7 tab.rapdis 09/16/20 Unknown Rx Active Meds: Active Medications Acetaminophen (Tylenol) 650 mg PO Q4H PRN PRN Reason: Pain MILD(1-3)/Fever >100.5/JOYNER Sodium Chloride (Nacl 0.9% 1000 Ml) 1,000 mls @ 125 mls/hr IV DIRECT DOV Last Admin: 10/04/20 09:24 Dose: 125 mls/hr Documented by: Piperacillin Sod/Tazobactam Sod (Zosyn/Ns 4.5gm/100ml) 4.5 gm in 100 mls @ 200 mls/hr IV Q8HR DOV; Protocol Last Admin: 10/04/20 05:30 Dose: 200 mls/hr Documented by: Morphine Sulfate (Morphine) 2 mg IV Q4H PRN PRN Reason: Pain, Moderate (4-6) Ondansetron HCl (Zofran) 4 mg IV Q8H PRN PRN Reason: Nausea And Vomiting Pantoprazole Sodium (Protonix) 40 mg IV BID [facility] Last Admin: 10/04/20 09:24 Dose: 40 mg Documented by: Sodium Chloride (Sodium Chloride Flush Syringe 10 Ml) 10 ml IV BID [facility] Last Admin: 10/04/20 09:27 Dose: 10 ml Documented by: Sodium Chloride (Sodium Chloride Flush Syringe 10 Ml) 10 ml IV PRN PRN PRN Reason: LINE FLUSH reviewed/updated patient's home and current medications Review of Systems - Review of Systems All systems: negative (per HPI) Exam - Constitutional Vital Signs: Temp Pulse Resp BP Pulse Ox 98.0 F 111 H 18 107/67 99 10/04/20 08:27 10/04/20 08:27 10/04/20 08:27 10/04/20 08:27 10/04/20 08:27 General appearance: no acute distress - EENT Eyes: PERRL, EOM intact - Neck Neck: supple - Respiratory Respiratory effort: normal Respiratory: bilateral: CTA - Cardiovascular Rhythm: regular Heart Sounds: Present: S1 & S2 - Gastrointestinal General gastrointestinal: Present: soft, non-tender, non-distended - Integumentary Integumentary: Present: clear, warm - Neurologic Neurological: alert and oriented x3 - Psychiatric Psychiatric: appropriate mood/affect - Labs CBC & Chem 7: 10/04/20 06:46 10/04/20 06:46 Lab Results: Laboratory Results - last 24 hr 10/03/20 10/03/20 10/03/20 15:32 15:32 19:01 WBC 7.6 RBC 4.97 Hgb 14.3 Hct 41.1 MCV 83 MCH 29 MCHC 35 H RDW 13.7 Plt Count 400 Lymph % (Auto) 26.3 [place] % (Auto) 6.9 Eos % (Auto) 1.3 Baso % (Auto) 0.6 Lymph # (Auto) 2.0 [place] # (Auto) 0.5 Eos # (Auto) 0.1 Baso # (Auto) 0.0 Seg Neutrophils % 64.9 Seg Neutrophils # 4.9 PT INR Sodium 144 Potassium 3.8 Chloride 103.9 Carbon Dioxide 24 Anion Gap 20 BUN 9 Creatinine 0.6 Estimated GFR > 60 BUN/Creatinine Ratio 15 Glucose 95 Calcium 9.5 Total Bilirubin 0.20 AST 27 ALT 37 Alkaline Phosphatase 79 Total Protein 7.8 Albumin 4.7 Albumin/Globulin Ratio 1.5 Lipase 22 Urine Color Yellow Urine Turbidity Clear Urine pH 8.0 H Ur Specific [place] 1.019 Urine Protein 30 mg/dl Urine Glucose (UA) Neg Urine Ketones 20 Urine Blood Neg Urine Nitrite Neg Urine Bilirubin Neg Urine Urobilinogen < 2.0 Ur Leukocyte Esterase Neg Urine WBC (Auto) < 1.0 Urine RBC (Auto) 1.0 U Epithel Cells (Auto) 1.0 Urine Mucus Few Urine HCG, Qual Negative 10/04/20 10/04/20 10/04/20 06:46 06:46 06:46 WBC 16.9 H RBC 4.25 Hgb 11.6 Hct 35.6 MCV 84 MCH 27 L MCHC 33 RDW 13.3 Plt Count 352 Lymph % (Auto) 8.0 L [place] % (Auto) 5.4 Eos % (Auto) 0.0 Baso % (Auto) 0.1 Lymph # (Auto) 1.4 [place] # (Auto) 0.9 H Eos # (Auto) 0.0 Baso # (Auto) 0.0 Seg Neutrophils % 86.5 H Seg Neutrophils # 14.7 H PT 13.8 INR 1.07 Sodium 141 Potassium 3.6 Chloride 105.8 Carbon Dioxide 25 Anion Gap 14 BUN 6 L Creatinine 0.6 Estimated GFR > 60 BUN/Creatinine Ratio 10 Glucose 124 H Calcium 8.4 Total Bilirubin AST ALT Alkaline Phosphatase Total Protein Albumin Albumin/Globulin Ratio Lipase Urine Color Urine Turbidity Urine pH Ur Specific [place] Urine Protein Urine Glucose (UA) Urine Ketones Urine Blood Urine Nitrite Urine Bilirubin Urine Urobilinogen Ur Leukocyte Esterase Urine WBC (Auto) Urine RBC (Auto) U Epithel Cells (Auto) Urine Mucus Urine HCG, Qual - Imaging CT Scan: report reviewed Assessment and Plan 1. Nausea/vomiting - recurrent episodes a couple times per month, typically self resolves per pt. unclear if this is related to possible ct findings/colitis vs other etiology ([facility], neuro source). cont supportive care, and can start trial of clears from gi stand point 2. Colitis with ? rectal abscess - obtain stool studies if pt has bm/loose stools. if true abscess, IBD would need to be considered. on abx, noted surgery consult.
--- NOTE | 2020-10-04 11:55 | Progress Note ---
Assessment and Plan Assessment and plan: 29-year-old -[place] female presented to the emergency room today complaining of for nausea and vomiting and associated abdominal pain. Patient has been ongoing since midnight. Patient has also been having coffee-ground emesis. She has been unable to tolerate oral intake and has also had a few episodes of diarrhea. Abdominal pain is said to be generalized, no known relieving or exacerbating factor. She denies any recent travel no sick contacts. Denies any hematuria or dysuria, no fever or chills, no bright red blood per rectum and no melena. Patient denies any chest pain or shortness of breath, no headache or dizziness. She denies any recent use of antibiotics. Last menstrual period was 09/02/2020 Work-up in the emergency room today CT scan of the abdomen and pelvis reveals pancolitis and a possible developing rectal abscess. General surgeon Dr. Mckeon has been consulted by the ER physician. Patient has been started on IV fluid, IV analgesic medication and empiric IV antibiotics. Discussed with surgeon following CT review with the radiologist, noted thinkend colon but no rectal abscess. Discussed with the GI and their recommendation is as noted below. If patient tolerates diet will discharge and follow with GI outpatient for colonosocopy 1. Nausea/vomiting - recurrent episodes a couple times per month, typically self resolves per pt. unclear if this is related to possible ct findings/colitis vs other etiology ([facility], neuro source). cont supportive care, and can start trial of clears from gi stand point 2. Colitis with ? rectal abscess - obtain stool studies if pt has bm/loose stools. if true abscess, IBD would need to be considered. on abx, noted surgery consult. (1) Abdominal pain possible IBD Current Visit: Yes Status: Acute Qualifiers: Abdominal location: generalized Qualified Code(s): R10.84 - Generalized abdominal pain Plan to address problem: Possibly secondary to the intractable nausea and vomiting ,pancolitis. Patient placed on IV analgesic medication. (2) Coffee ground emesis Current Visit: Yes Status: Acute Plan to address problem: Possibly secondary to the intractable nausea and vomiting. We will place a consult to gastroenterology for evaluation. We will place patient on proton pump inhibitor. Patient made n.p.o. (3) Intractable nausea and vomiting Current Visit: Yes Status: Acute Plan to address problem: Patient has been placed on IV Zofran as needed. (4) Rectal abscess ruled out Current Visit: Yes Status: Acute Plan to address problem: History Interval history: Patient seen and examined, no further nausea or vomiting, discussed with surgery. Hospitalist Physical - Constitutional Vitals: Temp Pulse Resp BP Pulse Ox 98.0 F 111 H 18 107/67 99 10/04/20 08:27 10/04/20 08:27 10/04/20 08:27 10/04/20 08:27 10/04/20 08:27 General appearance: Present: no acute distress, well-nourished - EENT Eyes: Present: PERRL, EOM intact ENT: hearing intact - Neck Neck: Present: supple, normal ROM - Respiratory Respiratory effort: normal Respiratory: bilateral: CTA - Cardiovascular Rhythm: regular Heart Sounds: Present: S1 & S2. Absent: systolic murmur - Extremities Extremities: no ischemia, pulses intact, No edema, Full ROM Peripheral Pulses: within normal limits - Abdominal General gastrointestinal: soft, non-tender, non-distended - Integumentary Integumentary: Present: clear, warm, erythema - Psychiatric Psychiatric: appropriate mood/affect, intact judgment & insight - Neurologic Neurologic: CNII-XII intact, moves all extremities - Allied Health Allied health notes reviewed: nursing Results - Labs CBC & Chem 7: 10/04/20 06:46 10/04/20 06:46 Labs: Laboratory Last Values WBC 16.9 K/mm3 (4.5-11.0) H 10/04/20 06:46 RBC 4.25 M/mm3 (3.65-5.03) 10/04/20 06:46 Hgb 11.6 gm/dl (10.1-14.3) 10/04/20 06:46 Hct 35.6 % (30.3-42.9) 10/04/20 06:46 MCV 84 fl (79-97) 10/04/20 06:46 MCH 27 pg (28-32) L 10/04/20 06:46 MCHC 33 % (30-34) 10/04/20 06:46 RDW 13.3 % (13.2-15.2) 10/04/20 06:46 Plt Count 352 K/mm3 (140-440) 10/04/20 06:46 Lymph % (Auto) 8.0 % (13.4-35.0) L 10/04/20 06:46 [place] % (Auto) 5.4 % (0.0-7.3) 10/04/20 06:46 Eos % (Auto) 0.0 % (0.0-4.3) 10/04/20 06:46 Baso % (Auto) 0.1 % (0.0-1.8) 10/04/20 06:46 Lymph # (Auto) 1.4 K/mm3 (1.2-5.4) 10/04/20 06:46 [place] # (Auto) 0.9 K/mm3 (0.0-0.8) H 10/04/20 06:46 Eos # (Auto) 0.0 K/mm3 (0.0-0.4) 10/04/20 06:46 Baso # (Auto) 0.0 K/mm3 (0.0-0.1) 10/04/20 06:46 Seg Neutrophils % 86.5 % (40.0-70.0) H 10/04/20 06:46 Seg Neutrophils # 14.7 K/mm3 (1.8-7.7) H 10/04/20 06:46 PT 13.8 Sec. (12.2-14.9) 10/04/20 06:46 INR 1.07 (0.87-1.13) 10/04/20 06:46 Sodium 141 mmol/L (137-145) 10/04/20 06:46 Potassium 3.6 mmol/L (3.6-5.0) 10/04/20 06:46 Chloride 105.8 mmol/L (98-107) 10/04/20 06:46 Carbon Dioxide 25 mmol/L (22-30) 10/04/20 06:46 Anion Gap 14 mmol/L 10/04/20 06:46 BUN 6 mg/dL (7-17) L 10/04/20 06:46 Creatinine 0.6 mg/dL (0.6-1.2) 10/04/20 06:46 Estimated GFR > 60 ml/min 10/04/20 06:46 BUN/Creatinine Ratio 10 % 10/04/20 06:46 Glucose 124 mg/dL (65-100) H 10/04/20 06:46 Calcium 8.4 mg/dL (8.4-10.2) 10/04/20 06:46 Total Bilirubin 0.20 mg/dL (0.1-1.2) 10/03/20 15:32 AST 27 units/L (5-40) 10/03/20 15:32 ALT 37 units/L (7-56) 10/03/20 15:32 Alkaline Phosphatase 79 units/L (35-129) 10/03/20 15:32 Total Protein 7.8 g/dL (6.3-8.2) 10/03/20 15:32 Albumin 4.7 g/dL (3.9-5) 10/03/20 15: Albumin/Globulin Ratio 1.5 % 10/03/20 15: Lipase 22 units/L (13-60) 10/03/20 15:32 Urine Color Yellow (Yellow) 10/03/20 19: Urine Turbidity Clear (Clear) 10/03/20 19: Urine pH 8.0 (5.0-7.0) H 10/03/20 19: Ur Specific [place] 1.019 (1.003-1.030) 10/03/20 19: Urine Protein 30 mg/dl mg/dL (Negative) 10/03/20 19: Urine Glucose (UA) Neg mg/dL (Negative) 10/03/20 19: Urine Ketones 20 mg/dL (Negative) 10/03/20 19: Urine Blood Neg (Negative) 10/03/20 19: Urine Nitrite Neg (Negative) 10/03/20 19: Urine Bilirubin Neg (Negative) 10/03/20 19: Urine Urobilinogen < 2.0 mg/dL (<2.0) 10/03/20 19: Ur Leukocyte Esterase Neg (Negative) 10/03/20 19: Urine WBC (Auto) < 1.0 /HPF (0.0-6.0) 10/03/20 19: Urine RBC (Auto) 1.0 /HPF (0.0-6.0) 10/03/20 19: U Epithel Cells (Auto) 1.0 /HPF (0-13.0) 10/03/20 19: Urine Mucus Few /HPF 10/03/20 19: Urine HCG, Qual Negative (Negative) 10/03/20 19:01 Microbiology: Microbiology 10/03/20 21:13 Stool Stool Occult Blood (JAMAR) - Final Davies/IV: IV Catheter Type [Right Peripheral IV Antecubital] Active Medications - Current Medications Current Medications: Generic Name Dose Route Start Last Admin Trade Name Freq PRN Reason Stop Dose Admin Acetaminophen 650 mg 10/03/20 21:53 Tylenol PO Q4H PRN Pain MILD(1-3)/Fever >100.5/JOYNER Sodium Chloride 1,000 mls @ 125 mls/hr 10/03/20 22:00 10/04/20 09:24 Nacl 0.9% 1000 Ml IV 125 mls/hr DIRECT DOV Administration Piperacillin Sod/Tazobactam Sod 4.5 gm in 100 mls @ 200 mls/hr 10/04/20 06:00 10/04/20 05:30 Zosyn/Ns 4.5gm/100ml IV 200 mls/hr Q8HR DOV Administration Protocol Morphine Sulfate 2 mg 10/03/20 21:53 Morphine IV Q4H PRN Pain, Moderate (4-6) Ondansetron HCl 4 mg 10/03/20 21:53 Zofran IV Q8H PRN Nausea And Vomiting Pantoprazole Sodium 40 mg 10/04/20 10:00 10/04/20 09:24 Protonix IV 40 mg BID DOV Administration Sodium Chloride 10 ml 10/03/20 22:00 10/04/20 09:27 Sodium Chloride Flush Syringe 10 Ml IV 10 ml BID DOV Administration Sodium Chloride 10 ml 10/03/20 21:53 Sodium Chloride Flush Syringe 10 Ml IV PRN PRN LINE FLUSH
--- NOTE | 2020-10-04 12:04 | Discharge Summary ---
Providers - Providers Date of Admission: 10/03/20 21:30 Attending physician: ILENE VELASQUEZ MD 10/03/20 21:26 Consult to Physician [CONS] Routine Comment: Consulting Provider: ADA SANCHEZ Physician Instructions: Reason For Exam: rectal abscess 10/03/20 21:27 Consult to Physician [CONS] Routine Comment: Consulting Provider: AURA ABREU Physician Instructions: Reason For Exam: coffee ground emesis Primary care physician: [employer]PAR[employer]PER[employer] Hospitalization Reason for admission: ABDOMINAL PAIN Condition: Stable Hospital course: 29-year-old -[place] female presented to the emergency room today complaining of for nausea and vomiting and associated abdominal pain. Patient has been ongoing since midnight. Patient has also been having coffee-ground emesis. She has been unable to tolerate oral intake and has also had a few episodes of diarrhea. Abdominal pain is said to be generalized, no known relieving or exacerbating factor. She denies any recent travel no sick contacts. Denies any hematuria or dysuria, no fever or chills, no bright red blood per rectum and no melena. Patient denies any chest pain or shortness of breath, no headache or dizziness. She denies any recent use of antibiotics. Last menstrual period was 09/02/2020 Work-up in the emergency room today CT scan of the abdomen and pelvis reveals pancolitis and a possible developing rectal abscess. General surgeon Dr. Sanchez has been consulted by the ER physician. Patient has been started on IV fluid, IV analgesic medication and empiric IV antibiotics. Discussed with surgeon following CT review with the radiologist, noted thinkend colon but no rectal abscess. Discussed with the GI and their recommendation is as noted below. If patient tolerates diet will discharge and follow with GI outpatient for colonosocopy 1. Nausea/vomiting - recurrent episodes a couple times per month, typically self resolves per pt. unclear if this is related to possible ct findings/colitis vs other etiology ([facility], neuro source). cont supportive care, and can start trial of clears from gi stand point 2. Colitis with ? rectal abscess - obtain stool studies if pt has bm/loose stools. if true abscess, IBD would need to be considered. on abx, noted surgery consult. (1) Abdominal pain possible IBD Current Visit: Yes Status: Acute Qualifiers: Abdominal location: generalized Qualified Code(s): R10.84 - Generalized abdominal pain Plan to address problem: Possibly secondary to the intractable nausea and vomiting ,pancolitis. Patient placed on IV analgesic medication. (2) Coffee ground emesis Current Visit: Yes Status: Acute Plan to address problem: Possibly secondary to the intractable nausea and vomiting. We will place a consult to gastroenterology for evaluation. We will place patient on proton pump inhibitor. Patient made n.p.o. (3) Intractable nausea and vomiting Current Visit: Yes Status: Acute Plan to address problem: Patient has been placed on IV Zofran as needed. (4) Rectal abscess ruled out Current Visit: Yes Status: Acute Plan to address problem: Disposition: DC-01 TO HOME OR SELFCARE Time spent for discharge: 35 MINS Core Measure Documentation - Palliative Care Palliative Care/ Comfort Measures: Not Applicable - Core Measures Any of the following diagnoses?: none Exam - Constitutional Vitals: Temp Pulse Resp BP Pulse Ox 98.0 F 111 H 18 107/67 99 10/04/20 08:27 10/04/20 08:27 10/04/20 08:27 10/04/20 08:27 10/04/20 08:27 General appearance: Present: no acute distress, well-nourished - EENT Eyes: Present: PERRL, EOM intact ENT: hearing intact, clear oral mucosa - Neck Neck: Present: supple, normal ROM - Respiratory Respiratory effort: normal Respiratory: bilateral: CTA - Cardiovascular Rhythm: regular Heart Sounds: Present: S1 & S2. Absent: systolic murmur - Extremities Extremities: no ischemia, pulses intact, No edema, Full ROM Peripheral Pulses: within normal limits - Abdominal General gastrointestinal: Present: soft, non-tender, non-distended - Integumentary Integumentary: Present: clear, warm, dry - Musculoskeletal Musculoskeletal: strength equal bilaterally - Psychiatric Psychiatric: appropriate mood/affect, intact judgment & insight, memory intact - Neurologic Neurologic: CNII-XII intact, moves all extremities - Allied Health Allied health notes reviewed: nursing Plan Activity: advance as tolerated, fall precautions Diet: low fat, advance as tolerated Special Instructions: record daily weights, record daily BP diary Follow up with: EITAN TOMLINSON MD [Primary Care Provider] - 7 Days AURA ABREU MD [Staff Physician] - 7 Days ADA SANCHEZ MD [Staff Physician] - 7 Days Prescriptions: Ciprofloxacin HCl [Ciprofloxacin TAB] 500 mg PO Q12HR #14 tab metroNIDAZOLE [Flagyl] 500 mg PO Q8HR #21 tablet Pantoprazole [Protonix TAB] 40 mg PO QDAY #30 tablet Ondansetron [Zofran ODT TAB] 4 mg PO Q4HR PRN #15 tab.rapdis PRN Reason: Nausea
[2020-10-04 13:10] LABS: Basophils # (Auto) 0.1 K/mm3 (0.0-0.1); Basophils % (Auto) 0.6 % (0.0-1.8); Eosinophils % (Auto) 0.2 % (0.0-4.3); Hematocrit 33.7 % (30.3-42.9); Hemoglobin 11.7 gm/dl (10.1-14.3); Lymphocytes # (Auto) 2.2 K/mm3 (1.2-5.4); Mean Corpuscular HGB Conc 35 % (30-34); Mean Corpuscular Volume 82 fl (79-97); Monocytes % (Auto) 6.6 % (0.0-7.3); Platelet Count 327 K/mm3 (140-440); Red Blood Count 4.09 M/mm3 (3.65-5.03); Red Cell Distribution Width 13.3 % (13.2-15.2)
== END 2020-10-04 13:05 | disposition home or self-care (01) | DRG 392 ==
LOC: ED 14:39 → 4A 21:30
PROVIDERS: ADMIT Internal Medicine Geriatric Medicine; ATTEND Internal Medicine
DX: K52.3 Indeterminate colitis (principal); K51.00 Ulcerative (chronic) pancolitis without complications; N83.202 Unspecified ovarian cyst, left side; Z79.899 Other long term (current) drug therapy
CPT/HCPCS: 36415; 74177; 80048; 80053; 81001; 81025; 82271; 83690; 85025; 85610; 87116; 96361; 96365; 96367; 96375; G0378; C9113; J0780; J1200; J1956; J2405; J2543; J2765; J7030; Q0162; Q9967

== ENCOUNTER 2020-12-25 02:28 | Emergency (ER) | payer OTHER ==
[2020-12-25] MEDS ORDERED: METOCLOPRAMIDE 10 MG/2 ML INJ IV ONE (03:42)
[2020-12-25] MEDS ORDERED: SODIUM CHLORIDE 0.9% 1000 ML 1,000 ML IV ONE (03:42)
[2020-12-25] MEDS ORDERED: diphenhydrAMINE 50 MG/ML VIAL IV ONE (03:42)
[2020-12-25 04:42] LABS: Basophils % (Auto) 0.4 % (0.0-1.8); Eosinophils % (Auto) 0.3 % (0.0-4.3); Hematocrit 46.4 % (30.3-42.9); Hemoglobin 15.6 gm/dl (10.1-14.3); Lymphocytes # (Auto) 2.6 K/mm3 (1.2-5.4); Lymphocytes % (Auto) 26.7 % (13.4-35.0); Mean Corpuscular HGB Conc 34 % (30-34); Mean Corpuscular Volume 83 fl (79-97); Monocytes # (Auto) 0.7 K/mm3 (0.0-0.8); Monocytes % (Auto) 6.9 % (0.0-7.3); Platelet Count 454 K/mm3 (140-440); Red Cell Distribution Width 13.5 % (13.2-15.2)
[2020-12-25 05:02] LABS: Alanine Aminotransferase 44 units/L (7-56); Albumin 5.1 g/dL (3.9-5); Blood Urea Nitrogen 7 mg/dL (7-17); Calcium 10.2 mg/dL (8.4-10.2); Hemolysis Index 7
[2020-12-25 05:04] LABS: BUN/Creatinine Ratio 10
[2020-12-25] MEDS ORDERED: ONDANSETRON 4 MG/2 ML INJ ONE (06:19)
[2020-12-25] MEDS ORDERED: ONDANSETRON 4 MG/2 ML INJ IV ONE (06:20)
[2020-12-25] MEDS ORDERED: FAMOTIDINE 20 MG/2 ML INJ IV ONE (06:20)
--- NOTE | 2020-12-25 06:23 | Emergency Department Report ---
ED N/V/D HPI - General Chief complaint: Nausea/Vomiting/Diarrhea Stated complaint: EMESIS Time Seen by Provider: 12/25/20 06:11 Source: patient Mode of arrival: Ambulatory Limitations: No Limitations - History of Present Illness Initial comments: 29-year-old female with a past medical history of recurrent vomiting and diarrhea episodes presents to the hospital complaining of vomiting with p.o. intolerance since yesterday that worsened in the evening. Patient complains of dark emesis but denies gross hematemesis. Planes of generalized intermittent abdominal pain worse in epigastric area rated 8/10 in intensity. Currently she does not have any pain at time of my evaluation. Patient complains of generalized weakness due to decreased p.o. intake. Patient received Benadryl, Reglan, and currently receiving IV fluids at time of my evaluation is still reporting significant nausea with dry heaving. Patient denies fever, current abdominal pain, diarrhea, melena, hematochezia, or dysuria. Previous medical record review patient was here September 2020 was diagnosed with pancolitis with possible rectal abscess. Rectal abscess was ruled out and it was unclear if pancolitis was affiliated with her current GI symptoms. Patient is not followed up with GI as outpatient - Related Data Previous Rx's Medication Instructions Recorded Last Taken Type Ciprofloxacin HCl [Ciprofloxacin 500 mg PO Q12HR #14 tab 10/04/20 Unknown Rx TAB] Ondansetron [Zofran ODT TAB] 4 mg PO Q4HR PRN #15 tab.rapdis 10/04/20 Unknown Rx metroNIDAZOLE [Flagyl] 500 mg PO Q8HR #21 tablet 10/04/20 Unknown Rx Ondansetron [Zofran Odt] 4 mg PO Q6HR PRN #20 tab.rapdis 12/25/20 Unknown Rx Pantoprazole [Protonix TAB] 40 mg PO QDAY #30 tablet 12/25/20 Unknown Rx Promethazine [Phenergan] 25 mg OR Q6HR PRN #15 supp.rect 12/25/20 Unknown Rx Allergies Allergy/AdvReac Type Severity Reaction Status Date / Time No Known Allergies Allergy Verified 05/14/20 02:52 ED Review of Systems ROS: Stated complaint: EMESIS Other details as noted in HPI Comment: All other systems reviewed and negative ED Past Medical Hx - Past Medical History Previous Medical History?: No Hx Congestive Heart Failure: No Hx Diabetes: No Hx Asthma: No Hx COPD: No Additional medical history: pt denies - Surgical History Past Surgical History?: No Additional Surgical History: pt denies - Social History Smoking Status: Never Smoker Substance Use Type: Marijuana - Medications Home Medications: Home Medications Medication Instructions Recorded Confirmed Last Taken Type Ciprofloxacin HCl [Ciprofloxacin 500 mg PO Q12HR #14 tab 10/04/20 Unknown Rx TAB] Ondansetron [Zofran ODT TAB] 4 mg PO Q4HR PRN #15 tab.rapdis 10/04/20 Unknown Rx metroNIDAZOLE [Flagyl] 500 mg PO Q8HR #21 tablet 10/04/20 Unknown Rx Ondansetron [Zofran Odt] 4 mg PO Q6HR PRN #20 tab.rapdis 12/25/20 Unknown Rx Pantoprazole [Protonix TAB] 40 mg PO QDAY #30 tablet 12/25/20 Unknown Rx Promethazine [Phenergan] 25 mg OR Q6HR PRN #15 supp.rect 12/25/20 Unknown Rx ED Physical Exam - General Limitations: No Limitations - Other Other exam information: General: Mild distress secondary to nausea Head: Atraumatic Eyes: normal appearance ENT: Moist mucous membranes Neck: Normal appearance, no midline tenderness Chest: Clear to auscultation bilaterally CV: Tachycardic regular rhythm Abdomen: Soft, normal bowel sounds, nontender, nondistended, no rebound or guarding Back: Normal inspection Extremity: Normal inspection, full range of motion Neuro: Alert O x 3, no facial asymmetry, speech clear, no gross motor sensory deficit Psych: Appropriate behavior Skin: No rash ED Course Vital Signs 12/25/20 12/25/20 12/25/20 03:07 03:40 03:58 Temperature 98.1 F Pulse Rate 134 H 118 H Respiratory 16 18 Rate Blood Pressure 155/108 139/93 Blood Pressure [Left] O2 Sat by Pulse 99 100 99 Oximetry 12/25/20 12/25/20 12/25/20 04:01 04:15 04:31 Temperature Pulse Rate 118 H 112 H 103 H Respiratory 20 14 26 H Rate Blood Pressure 152/95 150/99 160/106 Blood Pressure [Left] O2 Sat by Pulse 100 100 Oximetry 12/25/20 12/25/20 12/25/20 04:45 06:18 07:00 Temperature Pulse Rate 108 H 105 H 108 H Respiratory 25 H 21 23 Rate Blood Pressure 156/102 144/99 Blood Pressure 146/102 [Left] O2 Sat by Pulse 98 98 100 Oximetry 12/25/20 12/25/20 12/25/20 07:49 09:01 09:02 Temperature 97.4 F L Pulse Rate 102 H 102 H 96 H Respiratory 18 17 15 Rate Blood Pressure 153/105 Blood Pressure 139/85 153/105 [Left] O2 Sat by Pulse 100 100 100 Oximetry 12/25/20 13:49 Temperature Pulse Rate 99 H Respiratory 18 Rate Blood Pressure Blood Pressure 109/73 [Left] O2 Sat by Pulse 100 Oximetry ED Medical Decision Making - Lab Data Result diagrams: 12/25/20 03:53 12/25/20 03:53 Lab Results 12/25/20 12/25/20 12/25/20 Range/Units 03:53 03:53 03:53 WBC 9.7 (4.5-11.0) K/mm3 RBC 5.60 H (3.65-5.03) M/mm3 Hgb 15.6 H (10.1-14.3) gm/dl Hct 46.4 H (30.3-42.9) % MCV 83 (79-97) fl MCH 28 (28-32) pg MCHC 34 (30-34) % RDW 13.5 (13.2-15.2) % Plt Count 454 H (140-440) K/mm3 Lymph % (Auto) 26.7 (13.4-35.0) % [place] % (Auto) 6.9 (0.0-7.3) % Eos % (Auto) 0.3 (0.0-4.3) % Baso % (Auto) 0.4 (0.0-1.8) % Lymph # (Auto) 2.6 (1.2-5.4) K/mm3 [place] # (Auto) 0.7 (0.0-0.8) K/mm3 Eos # (Auto) 0.0 (0.0-0.4) K/mm3 Baso # (Auto) 0.0 (0.0-0.1) K/mm3 Seg Neutrophils % 65.7 (40.0-70.0) % Seg Neutrophils # 6.3 (1.8-7.7) K/mm3 Sodium 141 (137-145) mmol/L Potassium 3.4 L (3.6-5.0) mmol/L Chloride 98.3 (98-107) mmol/L Carbon Dioxide 19 L (22-30) mmol/L Anion Gap 27 mmol/L BUN 7 (7-17) mg/dL Creatinine 0.7 (0.6-1.2) mg/dL Estimated GFR > 60 ml/min BUN/Creatinine Ratio 10 % Glucose 176 H (65-100) mg/dL Calcium 10.2 (8.4-10.2) mg/dL Total Bilirubin 0.40 (0.1-1.2) mg/dL AST 33 (5-40) units/L ALT 44 (7-56) units/L Alkaline Phosphatase 81 (35-129) units/L Total Protein 8.1 (6.3-8.2) g/dL Albumin 5.1 H (3.9-5) g/dL Albumin/Globulin Ratio 1.7 % Lipase 15 (13-60) units/L HCG, Qual Negative (Negative) Urine Color (Yellow) Urine Turbidity (Clear) Urine pH (5.0-7.0) Ur Specific [place] (1.003-1.030) Urine Protein (Negative) mg/dL Urine Glucose (UA) (Negative) mg/dL Urine Ketones (Negative) mg/dL Urine Blood (Negative) Urine Nitrite (Negative) Urine Bilirubin (Negative) Urine Urobilinogen (<2.0) mg/dL Ur Leukocyte Esterase (Negative) Urine WBC (Auto) (0.0-6.0) /HPF Urine RBC (Auto) (0.0-6.0) /HPF U Epithel Cells (Auto) (0-13.0) /HPF Urine Mucus /HPF 12/25/20 Range/Units Unknown WBC (4.5-11.0) K/mm3 RBC (3.65-5.03) M/mm3 Hgb (10.1-14.3) gm/dl Hct (30.3-42.9) % MCV (79-97) fl MCH (28-32) pg MCHC (30-34) % RDW (13.2-15.2) % Plt Count (140-440) K/mm3 Lymph % (Auto) (13.4-35.0) % [place] % (Auto) (0.0-7.3) % Eos % (Auto) (0.0-4.3) % Baso % (Auto) (0.0-1.8) % Lymph # (Auto) (1.2-5.4) K/mm3 [place] # (Auto) (0.0-0.8) K/mm3 Eos # (Auto) (0.0-0.4) K/mm3 Baso # (Auto) (0.0-0.1) K/mm3 Seg Neutrophils % (40.0-70.0) % Seg Neutrophils # (1.8-7.7) K/mm3 Sodium (137-145) mmol/L Potassium (3.6-5.0) mmol/L Chloride (98-107) mmol/L Carbon Dioxide (22-30) mmol/L Anion Gap mmol/L BUN (7-17) mg/dL Creatinine (0.6-1.2) mg/dL Estimated GFR ml/min BUN/Creatinine Ratio % Glucose (65-100) mg/dL Calcium (8.4-10.2) mg/dL Total Bilirubin (0.1-1.2) mg/dL AST (5-40) units/L ALT (7-56) units/L Alkaline Phosphatase (35-129) units/L Total Protein (6.3-8.2) g/dL Albumin (3.9-5) g/dL Albumin/Globulin Ratio % Lipase (13-60) units/L HCG, Qual (Negative) Urine Color Yellow (Yellow) Urine Turbidity Clear (Clear) Urine pH 6.0 (5.0-7.0) Ur Specific [place] 1.053 H (1.003-1.030) Urine Protein 100 mg/dl (Negative) mg/dL Urine Glucose (UA) Neg (Negative) mg/dL Urine Ketones 20 (Negative) mg/dL Urine Blood Neg (Negative) Urine Nitrite Neg (Negative) Urine Bilirubin Neg (Negative) Urine Urobilinogen < 2.0 (<2.0) mg/dL Ur Leukocyte Esterase Neg (Negative) Urine WBC (Auto) 1.0 (0.0-6.0) /HPF Urine RBC (Auto) < 1.0 (0.0-6.0) /HPF U Epithel Cells (Auto) 3.0 (0-13.0) /HPF Urine Mucus Few /HPF - EKG Data -: EKG Interpreted by Me EKG shows normal: sinus rhythm Rate: tachycardia - Radiology Data Radiology results: report reviewed ct abd/pelvis IV contrast: 3cm left ovarian cyst, no free fluid - Medical Decision Making Patient in the ED for several hours and required multiple antiemetics as well as Ativan and several liters IV fluids to feel better. Patient does not have significant pain and CT does not show any significant abnormality other than incidental finding of ovarian cyst. Labs unremarkable. UA reveals dehydration without infection. Patient tolerated p.o. intake prior to discharge and was able to take p.o. potassium without vomiting. Patient be discharged with symptomatic treatment and once again encouraged to follow-up with a GI specialist regarding her recurrent nausea vomiting/GI symptoms Critical Care Time: No Critical care attestation.: If time is entered above; I have spent that time in minutes in the direct care of this critically ill patient, excluding procedure time. ED Disposition Clinical Impression: Nausea and vomiting, Dehydration Disposition: DC-01 TO HOME OR SELFCARE Is pt being admited?: No Does the pt Need Aspirin: No Condition: Stable Instructions: Nausea and Vomiting, Adult Additional Instructions: Take the medication as prescribed. Follow-up with your doctor or doctor/clinic provided. Return if symptoms worsen as indicated by your discharge instructions. Prescriptions: Promethazine [Phenergan] 25 mg OR Q6HR PRN #15 supp.rect PRN Reason: Nausea And Vomiting Pantoprazole [Protonix TAB] 40 mg PO QDAY #30 tablet Ondansetron [Zofran Odt] 4 mg PO Q6HR PRN #20 tab.rapdis PRN Reason: Nausea And Vomiting Referrals: PRIMARY CAREMD [Primary Care Provider] - 3-5 Days [facility] [Provider Group] - 3-5 Days BUCK TURNER MD [Staff Physician] - 3-5 Days Time of Disposition: 14:21
[2020-12-25 07:16] LABS: Bilirubin,Urine NEG (Negative); Blood,Urine NEG (Negative); Color,Urine Yellow (Yellow); Mucus,Urine FEW /HPF; RBC,Urine < 1.0 /HPF (0.0-6.0); Urobilinogen,Urine < 2.0 mg/dL (<2.0)
[2020-12-25] MEDS: D5W/0.9% NACL 1,000 ML IV SCH ×2 (07:48→10:22)
[2020-12-25] MEDS ORDERED: PROMETHAZINE 25 MG RECT SUPP PR ONE (08:11)
[2020-12-25] MEDS ORDERED: SODIUM CHLORIDE 0.9% 1000 ML 1,000 ML ONE (10:04)
[2020-12-25] MEDS ORDERED: LORazepam 2 MG/ML VIAL IV ONE (10:18)
[2020-12-25] MEDS ORDERED: D5W/0.9% NACL 1,000 ML IV SCH (11:00)
[2020-12-25] MEDS ORDERED: POTASSIUM CHLORIDE ER 20 MEQ TAB PO ONE (11:27)
--- NOTE | 2020-12-25 11:47 | Cat Scan Report ---
CT ABDOMEN AND PELVIS WITH CONTRAST INDICATION: Patient complains of nausea and vomiting, PO intolerance. TECHNIQUE: Axial CT images were obtained through the abdomen and pelvis after IV contrast. All CT scans at this location are performed using CT dose reduction for ALARA by means of automated exposure control. COMPARISON: None available. FINDINGS: LOWER CHEST: No significant abnormality. LIVER: No significant abnormality. GALLBLADDER: No significant abnormality. BILE DUCTS: No significant abnormality. PANCREAS: No significant abnormality. SPLEEN: No significant abnormality. ADRENALS: No significant abnormality. RIGHT KIDNEY and URETER: No significant abnormality. LEFT KIDNEY and URETER: No significant abnormality. STOMACH and SMALL BOWEL: No significant abnormality. COLON: No significant abnormality. APPENDIX: No significant abnormality. PERITONEUM: No free fluid. No free air. No fluid collection. LYMPH NODES: No significant adenopathy. AORTA and ARTERIES: No significant abnormality. IVC and VEINS: No significant abnormality. URINARY BLADDER: No significant abnormality. REPRODUCTIVE ORGANS: 3 cm left ovarian cyst. ADDITIONAL FINDINGS: None. SKELETAL SYSTEM: No significant abnormality. IMPRESSION: 1. 3 cm left ovarian cyst. No free fluid. Signer Name: El Tellez MD Signed: 12/25/2020 7:25 AM Workstation Name: [id number]
[2020-12-25 13:50] VITALS: BP 109/73
== END 2020-12-25 14:58 | disposition home or self-care (01) ==
LOC: ED 02:28
DX: E86.0 Dehydration (principal); R11.2 Nausea with vomiting, unspecified; F12.10 Cannabis abuse, uncomplicated; Z79.2 Long term (current) use of antibiotics; Z79.899 Other long term (current) drug therapy
CPT/HCPCS: 36415; 74177; 80053; 81001; 83690; 84703; 85025; 93005; 96361; 96374; 96375; 99284; J1200; J2060; J2405; J2765; J7030; J7042; Q9967

== ENCOUNTER 2021-02-21 19:12 | Emergency (ER) | payer OTHER ==
[2021-02-21] MEDS ORDERED: ONDANSETRON 4 MG ODT TAB ONE (19:55)
[2021-02-21] MEDS ORDERED: ONDANSETRON 4 MG ODT TAB PO ONE (19:56)
--- NOTE | 2021-02-21 19:57 | Event Note ---
ED Screening Note ED Screening Note: Patient presents for nausea, vomiting, diarrhea began last night Has cyclical nausea vomiting which she has been seen for in the past She states that she had appointment with GI today but did not go because she was not feeling well This initial assessment/diagnostic orders/clinical plan/treatment(s) is/are subject to change based on patients health status, clinical progression and re- assessment by fellow clinical providers in the ED. Further treatment and workup at subsequent clinical providers discretion. Patient/guardian urged not to elope from the ED as their condition may be serious if not clinically assessed and managed. Initial orders include: Labs, urine, ODT Zofran
[2021-02-21 20:33] LABS: Basophils # (Auto) 0.1 K/mm3 (0.0-0.1); Basophils % (Auto) 0.5 % (0.0-1.8); Hematocrit 45.1 % (30.3-42.9); Hemoglobin 15.1 gm/dl (10.1-14.3); Lymphocytes % (Auto) 16.5 % (13.4-35.0); Mean Corpuscular HGB Conc 34 % (30-34); Mean Corpuscular Volume 82 fl (79-97); Monocytes # (Auto) 0.5 K/mm3 (0.0-0.8); Monocytes % (Auto) 4.4 % (0.0-7.3); Platelet Count 451 K/mm3 (140-440); Red Blood Count 5.51 M/mm3 (3.65-5.03); Red Cell Distribution Width 13.5 % (13.2-15.2)
[2021-02-21 20:53] LABS: Alanine Aminotransferase 40 units/L (7-56); Albumin 5.2 g/dL (3.9-5); Blood Urea Nitrogen 13 mg/dL (7-17); Hemolysis Index 14
[2021-02-21 21:00] LABS: BUN/Creatinine Ratio 22
[2021-02-21] MEDS ORDERED: diphenhydrAMINE 50 MG/ML VIAL IV ONE (21:08)
[2021-02-21] MEDS ORDERED: METOCLOPRAMIDE 10 MG/2 ML INJ IV ONE (21:08)
[2021-02-21] MEDS ORDERED: FAMOTIDINE 20 MG/2 ML INJ IV ONE (21:08)
[2021-02-21] MEDS ORDERED: DICYCLOMINE 20 MG/2 ML INJ IM ONE (21:09)
--- NOTE | 2021-02-21 22:36 | Cat Scan Report ---
CT ABDOMEN AND PELVIS WITH IV CONTRAST INDICATION: Pt complains of N/V/D x 1 day with slight abdominal pain. COMPARISON: CT 12/25/2020 TECHNIQUE: All CT scans at this facility use dose modulation, automated exposure control, iterative reconstructi on or weight based dosing, when appropriate, to reduce radiation dose to as low as reasonably achieva ble. FINDINGS: Lung Bases: No significant abnormality. Skeletal System: No acute abnormality. ABDOMEN: Liver: No significant abnormality. Gallbladder: No significant abnormality. Bile Ducts: No significant abnormality. Pancreas: No significant abnormality. Spleen: No significant abnormality. Adrenals: No significant abnormality. Right Kidney: No significant abnormality. Left Kidney: No significant abnormality. Upper GI tract: No significant abnormality. Lymph Nodes: No significant adenopathy. Aorta: No significant abnormality. Additional Findings: No significant abnormality. PELVIS: Colon: The colon is decompressed limiting its evaluation. Category for this, no significant abnormal ity. Urinary Bladder and Distal Ureters: No significant abnormality. Appendix: No significant abnormality. Lymph Nodes: No significant adenopathy. Additional Findings: None. IMPRESSION: 1. No acute process in the abdomen or pelvis. 2. Incidental findings, as above. Signer Name: Satya Young MD Signed: 02/21/2021 10:32 PM Workstation Name: [id number]
[2021-02-21] MEDS ORDERED: ONDANSETRON 4 MG/2 ML INJ IV ONE (23:07)
[2021-02-21] MEDS ORDERED: ONDANSETRON 4 MG/2 ML INJ ONE (23:08)
[2021-02-21 23:33] LABS: Bilirubin,Urine NEG (Negative); Blood,Urine NEG (Negative); Color,Urine Straw (Yellow); Mucus,Urine FEW /HPF; Urobilinogen,Urine < 2.0 mg/dL (<2.0); WBC,Urine < 1.0 /HPF (0.0-6.0)
--- NOTE | 2021-02-22 00:22 | Emergency Department Report ---
ED Abdominal Pain HPI - General Chief Complaint: Abdominal Pain Stated Complaint: NAUSEA/VOMITING Time Seen by Provider: 02/21/21 19:56 Source: patient Mode of arrival: Ambulatory Limitations: No Limitations - History of Present Illness Initial Comments: Patient is a 30 yo AA female with no past medical history except chronic abdominal pain, who presents to the ED with c/o acute exacerbation fo her chronic lower abdominal pain with nause and vomiting x 2 days, worse in the last 12 hours. Patient states that she had an appointment with the GI Physician in the last 8 hours but could not make it to the appointment due to worsening abdominal pain. Patient states that her pain is typical of her chronic abdominal pain, worse in the last 12 hours. Patient denies dyspnea, fever, chills, diarrhea, dizziness, cough, dysuria, hematuria, vision changes, vaginal bleeding, vaginal discharge or back pain MD Complaint: abdominal pain, other (nausea and vomiting) -: days(s) (2) Location: LLQ, RLQ, suprapubic Radiation: LLQ, RLQ, suprapubic Migration to: no migration Severity scale (0 -10): 8 Quality: cramping, aching, sharp Consistency: constant Worsens With: vomiting Associated Symptoms: denies other symptoms, nausea, vomiting, diarrhea, anorexia. denies: fever, chills, constipation, dysuria, hematemesis, hematochezia, melena, hematuria, syncope, other - Related Data LMP Date: 02/03/21 Previous Rx's Medication Instructions Recorded Last Taken Type Ciprofloxacin HCl [Ciprofloxacin 500 mg PO Q12HR #14 tab 10/04/20 Unknown Rx TAB] metroNIDAZOLE [Flagyl] 500 mg PO Q8HR #21 tablet 10/04/20 Unknown Rx Ondansetron [Zofran Odt] 4 mg PO Q6HR PRN #20 tab.rapdis 12/25/20 Unknown Rx Dicyclomine [Bentyl] 20 mg PO Q6H PRN #30 tablet 02/22/21 Unknown Rx Ondansetron [Zofran ODT TAB] 4 mg PO Q4HR PRN #20 tab.rapdis 02/22/21 Unknown Rx Pantoprazole [Protonix TAB] 40 mg PO QDAY #30 tablet 02/22/21 Unknown Rx Promethazine [Phenergan SUPPOS] 25 mg IL Q6HR PRN #20 supp.rect 02/22/21 Unknown Rx Allergies Allergy/AdvReac Type Severity Reaction Status Date / Time No Known Allergies Allergy Verified 05/14/20 02:52 ED Review of Systems ROS: Stated complaint: NAUSEA/VOMITING Other details as noted in HPI Constitutional: denies: chills, fever Eyes: denies: eye pain, eye discharge, vision change ENT: denies: ear pain, throat pain Respiratory: denies: cough, shortness of breath, wheezing Cardiovascular: denies: chest pain, palpitations Endocrine: no symptoms reported Gastrointestinal: abdominal pain, nausea, vomiting. denies: diarrhea Genitourinary: denies: urgency, dysuria, discharge Musculoskeletal: denies: back pain, joint swelling, arthralgia Skin: denies: rash, lesions Neurological: denies: headache, weakness, paresthesias Psychiatric: denies: anxiety, depression Hematological/Lymphatic: denies: easy bleeding, easy bruising ED Past Medical Hx - Past Medical History Previous Medical History?: No Hx Congestive Heart Failure: No Hx Diabetes: No Hx Asthma: No Hx COPD: No - Surgical History Additional Surgical History: pt denies - Social History Smoking Status: Never Smoker Substance Use Type: Marijuana - Medications Home Medications: Home Medications Medication Instructions Recorded Confirmed Last Taken Type Ciprofloxacin HCl [Ciprofloxacin 500 mg PO Q12HR #14 tab 10/04/20 Unknown Rx TAB] metroNIDAZOLE [Flagyl] 500 mg PO Q8HR #21 tablet 10/04/20 Unknown Rx Ondansetron [Zofran Odt] 4 mg PO Q6HR PRN #20 tab.rapdis 12/25/20 Unknown Rx Dicyclomine [Bentyl] 20 mg PO Q6H PRN #30 tablet 02/22/21 Unknown Rx Ondansetron [Zofran ODT TAB] 4 mg PO Q4HR PRN #20 tab.rapdis 02/22/21 Unknown Rx Pantoprazole [Protonix TAB] 40 mg PO QDAY #30 tablet 02/22/21 Unknown Rx Promethazine [Phenergan SUPPOS] 25 mg [place] Q6HR PRN #20 supp.rect 02/22/21 Unknown Rx ED Physical Exam - General Limitations: No Limitations General appearance: alert, in no apparent distress - Head Head exam: Present: atraumatic, normocephalic, normal inspection - Eye Eye exam: Present: normal appearance, PERRL, EOMI Pupils: Present: normal accommodation - ENT ENT exam: Present: normal exam, normal orophraynx, mucous membranes moist, TM's normal bilaterally, normal external ear exam - Neck Neck exam: Present: normal inspection, full ROM. Absent: tenderness - Respiratory Respiratory exam: Present: normal lung sounds bilaterally. Absent: respiratory distress, wheezes, rales, rhonchi, chest wall tenderness - Cardiovascular Cardiovascular Exam: Present: normal rhythm, tachycardia, normal heart sounds. Absent: systolic murmur, diastolic murmur, rubs, gallop - GI/Abdominal GI/Abdominal exam: Present: soft, tenderness (Palpable diffuse lower abdominal tenderness), normal bowel sounds. Absent: guarding, rebound - Extremities Exam Extremities exam: Present: normal inspection, full ROM, normal capillary refill - Back Exam Back exam: Present: normal inspection, full ROM. Absent: tenderness, CVA tenderness (L), muscle spasm, paraspinal tenderness, vertebral tenderness - Neurological Exam Neurological exam: Present: alert, oriented X3, CN II-XII intact, normal gait, reflexes normal - Psychiatric Psychiatric exam: Present: normal affect, normal mood, anxious - Skin Skin exam: Present: warm, dry, intact, normal color. Absent: rash ED Course Vital Signs 02/21/21 19:50 Temperature 97.9 F Pulse Rate 115 H Respiratory 14 Rate Blood Pressure 133/94 O2 Sat by Pulse 99 Oximetry ED Medical Decision Making - Lab Data Result diagrams: 02/21/21 20:10 02/21/21 20:10 - Radiology Data Radiology results: report reviewed, image reviewed [address] [address] Cat Scan Report Signed Patient: CAPRICE HE MR#: [id number] : 1990 Acct:[id number] Age/Sex: 30 / F ADM Date: 02/21/21 Loc: ED Attending Dr: Ordering Physician: WILL HARMAN Date of Service: 02/21/21 Procedure(s): CT abdomen pelvis w con Accession Number(s): [id number] cc: WILL HARMAN CT ABDOMEN AND PELVIS WITH IV CONTRAST INDICATION: Pt complains of N/V/D x 1 day with slight abdominal pain. COMPARISON: CT 12/25/2020 TECHNIQUE: All CT scans at this facility use dose modulation, automated exposure control, iterative reconstruction or weight based dosing, when appropriate, to reduce radiation dose to as low as reasonably achievable. FINDINGS: Lung Bases: No significant abnormality. Skeletal System: No acute abnormality. ABDOMEN: Liver: No significant abnormality. Gallbladder: No significant abnormality. Bile Ducts: No significant abnormality. Pancreas: No significant abnormality. Spleen: No significant abnormality. Adrenals: No significant abnormality. Right Kidney: No significant abnormality. Left Kidney: No significant abnormality. Upper GI tract: No significant abnormality. Lymph Nodes: No significant adenopathy. Aorta: No significant abnormality. Additional Findings: No significant abnormality. PELVIS: Colon: The colon is decompressed limiting its evaluation. Category for this, no significant abnormality. Urinary Bladder and Distal Ureters: No significant abnormality. Appendix: No significant abnormality. Lymph Nodes: No significant adenopathy. Additional Findings: None. IMPRESSION: 1. No acute process in the abdomen or pelvis. 2. Incidental findings, as above. Signer Name: Satya Young MD Signed: 02/21/2021 10:32 PM Workstation Name: [id number] Transcribed By: DIANN Dictated By: Satya Young MD Electronically Authenticated By: Satya Young MD Signed Date/Time: 02/21/212231 DD/ 28 TD/TT: Print Cancel - Medical Decision Making This is a 30 yo AA female with no past medical history except chronic abdominal pain, who presents to the ED with c/o acute exacerbation fo her chronic lower abdominal pain with nause and vomiting x 2 days, worse in the last 12 hours. Patient states that she had an appointment with the GI Physician in the last 8 hours but could not make it to the appointment due to worsening abdominal pain. Patient states that her pain is typical of her chronic abdominal pain, worse in the last 12 hours. In the ED, patient is alert and oriented x 3 and is in no acute distress but tachycardic, afebrile and appears to be in pain. Patient was treated for pain in the ED, also given antiemetics and normal saline 1 Litre IV bolus x 1. Abdomen pelvis CT scan with contrast showed no acute abnormalities. On reevaluation, patient's nausea and vomiting and pain was well controlled. Patient is able to drink oral fluids in the ED with no difficulty, and carries out conversations normally. Patient is hemodynamically stable. Patient will discharge home on medications including antiemetics, antacids and antispasmodics and was advised to follow-up with her primary care physician and GI physician as previously scheduled. Patient is advised return to the ED immediately if symptoms get worse. - Differential Diagnosis Gatsroenteritis; Colitis; UTI; Kidney stones; ; Ovarian cyst Critical care attestation.: If time is entered above; I have spent that time in minutes in the direct care of this critically ill patient, excluding procedure time. ED Disposition Clinical Impression: Intractable nausea and vomiting, Cyclical vomiting syndrome Abdominal pain Qualifiers: Abdominal location: lower abdomen, unspecified Qualified Code(s): R10.30 - Lower abdominal pain, unspecified Disposition: TO HOME OR SELFCARE Is pt being admited?: No Does the pt Need Aspirin: No Condition: Stable Instructions: Nausea and Vomiting, Adult, [id number], Abdominal Pain, Adult, [id number], Abdominal Pain (ED) Additional Instructions: All lab test results were reviewed and are all nonactionable. Abodmen pelvic CT scan with contrast shows no acute abnormalities. Your symptoms maybe due to viral syndrome or cyclic vomiting syndrome and chronic abdominal pain. Therefore maintain a clear liquid diet, drink plenty of fluids, take medication with food and follow up with the GI physician, Dr. Leigh Gardner as advised. Return to the ED immediately if symptioms get worse. Prescriptions: Dicyclomine [Bentyl] 20 mg PO Q6H PRN #30 tablet PRN Reason: Abdominal pain Promethazine [Phenergan SUPPOS] 25 mg IL Q6HR PRN #20 supp.rect PRN Reason: Nausea And Vomiting Pantoprazole [Protonix TAB] 40 mg PO QDAY #30 tablet Ondansetron [Zofran ODT TAB] 4 mg PO Q4HR PRN #20 tab.rapdis PRN Reason: Nausea Referrals: LEIGH GARDNER MD [Staff Physician] - 3-5 Days [facility] [Provider Group] - 3-5 Days Forms: Work/School Release Form(ED) Time of Disposition: 00:22 Print Language: ALBANIAN
[2021-02-22] MEDS ORDERED: MORPHINE 4 MG/1 ML INJ IV ONE (00:36)
[2021-02-22] MEDS ORDERED: SODIUM CHLORIDE 0.9% 1000 ML 1,000 ML IV ONE ×2 (00:37→02:09)
[2021-02-22] MEDS ORDERED: PROCHLORPERAZINE EDISYLATE 10 MG/2 ML VIAL IV ONE ×2 (01:20→01:36)
[2021-02-22 03:25] VITALS: BP 143/82
== END 2021-02-22 03:15 | disposition home or self-care (01) ==
LOC: ED 19:12
DX: R10.30 Lower abdominal pain, unspecified (principal); R10.2 Pelvic and perineal pain; R11.2 Nausea with vomiting, unspecified; F12.10 Cannabis abuse, uncomplicated; Z79.2 Long term (current) use of antibiotics; Z79.899 Other long term (current) drug therapy
CPT/HCPCS: 36415; 74177; 80053; 81001; 83690; 84703; 85025; 96361; 96372; 96374; 96375; 99284; J0500; J0780; J1200; J2270; J2405; J2765; J7030; Q9967; Q0162

== ENCOUNTER 2021-03-31 05:09 | Observation (INO) | payer OTHER ==
[2021-03-31] MEDS ORDERED: FAMOTIDINE 20 MG/2 ML INJ IV ONE (05:38)
[2021-03-31] MEDS ORDERED: PROCHLORPERAZINE EDISYLATE 10 MG/2 ML VIAL IV ONE (05:38)
[2021-03-31] MEDS ORDERED: SODIUM CHLORIDE 0.9% 1000 ML 1,000 ML IV ONE ×2 (05:38→10:15)
[2021-03-31] MEDS ORDERED: ONDANSETRON 4 MG ODT TAB PO ONE (05:39)
--- NOTE | 2021-03-31 05:42 | Event Note ---
ED Screening Note Date of service: 03/31/21 Time: 05:39 ED Screening Note: Patient is a 30 yo AA female with a h/o chronic cyclic vomiting syndrome presents to the ED with c/o acute onset persistent intractable nausea and vomiting with epigastric pain for the 10 hours. Patient states that she has not been able to keep anything down. Patient denies diarrhea, dizziness, chest pain, dyspnea, cough, dysuria, urinary urgency and frequency, fever and chills This initial assessment/diagnostic orders/clinical plan/treatment(s) is/are subject to change based on patients health status, clinical progression and re- assessment by fellow clinical providers in the ED. Further treatment and workup at subsequent clinical providers discretion. Patient/guardian urged not to elope from the ED as their condition may be serious if not clinically assessed and managed. Initial orders include: CBC, CMP. Lipase, UA, hcg serum, zofran 4mg ODT, NS 1 L IV bolus, pepcid
[2021-03-31 05:59] LABS: Basophils # (Auto) 0.1 K/mm3 (0.0-0.1); Basophils % (Auto) 1.2 % (0.0-1.8); Eosinophils % (Auto) 0.2 % (0.0-4.3); Hematocrit 39.7 % (30.3-42.9); Hemoglobin 13.7 gm/dl (10.1-14.3); Lymphocytes # (Auto) 2.9 K/mm3 (1.2-5.4); Lymphocytes % (Auto) 28.6 % (13.4-35.0); Mean Corpuscular HGB Conc 34 % (30-34); Mean Corpuscular Volume 82 fl (79-97); Monocytes # (Auto) 0.5 K/mm3 (0.0-0.8); Monocytes % (Auto) 4.9 % (0.0-7.3); Platelet Count 428 K/mm3 (140-440); Red Blood Count 4.84 M/mm3 (3.65-5.03); Red Cell Distribution Width 13.7 % (13.2-15.2)
[2021-03-31] MEDS ORDERED: ONDANSETRON 4 MG/2 ML INJ IV ONE (06:19)
[2021-03-31] MEDS ORDERED: METOCLOPRAMIDE 10 MG/2 ML INJ IV ONE (06:22)
[2021-03-31] MEDS ORDERED: METOCLOPRAMIDE 10 MG/2 ML INJ ONE (06:23)
--- NOTE | 2021-03-31 06:23 | Emergency Department Report ---
HPI - General Chief Complaint: Nausea/Vomiting/Diarrhea Time Seen by Provider: 03/31/21 06:11 - [facility] HPI: Room 1 The patient is a 30-year-old female present with a chief complaint of nausea vomiting. Patient states her symptoms began yesterday evening at 19: 00 with nausea vomiting this morning with diarrhea. Patient complains of occasional lower abdominal pain but is unable to describe the quality. Patient denies vaginal discharge, dysuria or hematuria. Patient denies history of fever. Patient denies sick contacts. The patient drove herself to the emergency department and there are no visitors present ED Past Medical Hx - Past Medical History Previous Medical History?: No Additional medical history: pt denies - Surgical History Past Surgical History?: No Additional Surgical History: pt denies - Family History Family history: no significant - Social History Smoking Status: Never Smoker Substance Use Type: None (Denies illicit drug use), Alcohol (Occasional) - Medications Home Medications: Home Medications Medication Instructions Recorded Confirmed Last Taken Type Ciprofloxacin HCl [Ciprofloxacin 500 mg PO Q12HR #14 tab 10/04/20 Unknown Rx TAB] metroNIDAZOLE [Flagyl] 500 mg PO Q8HR #21 tablet 10/04/20 Unknown Rx Ondansetron [Zofran Odt] 4 mg PO Q6HR PRN #20 tab.rapdis 12/25/20 Unknown Rx Dicyclomine [Bentyl] 20 mg PO Q6H PRN #30 tablet 02/22/21 Unknown Rx Ondansetron [Zofran ODT TAB] 4 mg PO Q4HR PRN #20 tab.rapdis 02/22/21 Unknown Rx Pantoprazole [Protonix TAB] 40 mg PO QDAY #30 tablet 02/22/21 Unknown Rx Promethazine [Phenergan SUPPOS] 25 mg [place] Q6HR PRN #20 supp.rect 02/22/21 Unknown Rx ED Review of Systems ROS: Stated complaint: NAUSEA;VOMITING;DIARRHEA Other details as noted in HPI Constitutional: denies: fever Eyes: denies: eye pain ENT: denies: throat pain Respiratory: no symptoms reported Cardiovascular: denies: chest pain Endocrine: no symptoms reported Gastrointestinal: abdominal pain, nausea, vomiting, diarrhea Genitourinary: denies: dysuria, hematuria, discharge Musculoskeletal: denies: back pain Neurological: denies: headache Physical Exam - Physical Exam Vital Signs: Vital Signs 03/31/21 05:23 Temperature 98.2 F Pulse Rate 116 H Respiratory 16 Rate Blood Pressure 161/96 [Right] O2 Sat by Pulse 100 Oximetry Physical Exam: GENERAL: The patient is well-developed well-nourished female lying on stretcher appearing to be in mild discomfort from nausea. [] HEENT: Normocephalic. Atraumatic. Extraocular motions are intact. Patient has moist mucous membranes. NECK: Supple. Trachea midline CHEST/LUNGS: Clear to auscultation. There is no respiratory distress noted. HEART/CARDIOVASCULAR: Regular. There is no tachycardia. There is no gallop rub or murmur. ABDOMEN: Abdomen is soft, with trace discomfort to palpation in the right lower quadrant, suprapubic and left lower quadrants. There is no rebound or guarding. Patient has normal bowel sounds. There is no abdominal distention. SKIN: There is no rash. There is no edema. There is no diaphoresis. NEURO: The patient is awake, alert, and oriented. The patient is cooperative. The patient has no focal neurologic deficits. The patient has normal speech MUSCULOSKELETAL: There is no CVA tenderness. There is no evidence of acute injury. ED Course Vital Signs 03/31/21 05:23 Temperature 98.2 F Pulse Rate 116 H Respiratory 16 Rate Blood Pressure 161/96 [Right] O2 Sat by Pulse 100 Oximetry - Reevaluation(s) Reevaluation #1: 03/31/21 10:15 Patient failed p.o. challenge after receiving multiple antiemetics. Will admit patient to the hospital for further management ED Medical Decision Making - Lab Data Result diagrams: 03/31/21 05:36 03/31/21 05:36 Laboratory Tests 03/31/21 03/31/21 03/31/21 05:36 05:36 05:41 WBC 10.1 RBC 4.84 Hgb 13.7 Hct 39.7 MCV 82 MCH 28 MCHC 34 RDW 13.7 Plt Count 428 Lymph % (Auto) 28.6 Mcdowell % (Auto) 4.9 Eos % (Auto) 0.2 Baso % (Auto) 1.2 Lymph # (Auto) 2.9 Mcdowell # (Auto) 0.5 Eos # (Auto) 0.0 Baso # (Auto) 0.1 Seg Neutrophils % 65.1 Seg Neutrophils # 6.6 Sodium 142 Potassium 3.8 Chloride 102.1 Carbon Dioxide 18 L Anion Gap 26 BUN 9 Creatinine 0.6 Estimated GFR > 60 BUN/Creatinine Ratio 15 Glucose 149 H Calcium 9.5 Total Bilirubin 0.30 AST 29 ALT 43 Alkaline Phosphatase 96 Total Protein 8.0 Albumin 4.8 Albumin/Globulin Ratio 1.5 Lipase 17 HCG, Qual Urine Color Urine Turbidity Urine pH Ur Specific Hampton Urine Protein Urine Glucose (UA) Urine Ketones Urine Blood Urine Nitrite Urine Bilirubin Urine Urobilinogen Ur Leukocyte Esterase Urine WBC (Auto) Urine RBC (Auto) U Epithel Cells (Auto) 03/31/21 03/31/21 05:41 06:28 WBC RBC Hgb Hct MCV MCH MCHC RDW Plt Count Lymph % (Auto) Mcdowell % (Auto) Eos % (Auto) Baso % (Auto) Lymph # (Auto) Mcdowell # (Auto) Eos # (Auto) Baso # (Auto) Seg Neutrophils % Seg Neutrophils # Sodium Potassium Chloride Carbon Dioxide Anion Gap BUN Creatinine Estimated GFR BUN/Creatinine Ratio Glucose Calcium Total Bilirubin AST ALT Alkaline Phosphatase Total Protein Albumin Albumin/Globulin Ratio Lipase HCG, Qual Negative Urine Color Yellow Urine Turbidity Clear Urine pH 8.0 H Ur Specific Hampton 1.015 Urine Protein <15 mg/dl Urine Glucose (UA) Neg Urine Ketones Tr Urine Blood Neg Urine Nitrite Neg Urine Bilirubin Neg Urine Urobilinogen < 2.0 Ur Leukocyte Esterase Neg Urine WBC (Auto) < 1.0 Urine RBC (Auto) 1.0 U Epithel Cells (Auto) 2.0 - Radiology Data Radiology results: report reviewed (CT abdomen pelvis), image reviewed (CT abdomen pelvis) [facility] [address] [place] [address] Cat Scan Report Signed Patient: CAPRICE HE MR#: [id number] : 1990 Acct:[id number] Age/Sex: 30 / F ADM Date: 03/31/21 Loc: ED Attending Dr: Ordering Physician: MICHELLE STOVALL MD Date of Service: 03/31/21 Procedure(s): CT abdomen pelvis w con Accession Number(s): [id number] cc: MICHELLE STOVALL MD CT ABDOMEN AND PELVIS WITH CONTRAST INDICATION: Lower abdominal pain, nausea, vomiting CONTRAST: 100 cc Omnipaque 300 IV COMPARISON: 02/21/[address] scans at this location are performed using CT dose reduction for ALARA by means of automated exposure control. FINDINGS: Lung bases are clear. Small hernia is noted. Gall bladder and bile ducts appear within normal limits. No masses are seen. No urinary obstructive changes are noted. Right ovarian cyst probably is physiologic. No free fluid is seen. As on previous study, most of the colon is decompressed and difficult to evaluate. Mild wall edema is not excluded and mild colitis is possible though I do not see obvious surrounding inflammation. No small bowel wall thickening is seen. No evidence of bowel obstruction is noted. Appendix is partially visualized without definite abnormality. No inflammation is seen in the right lower quadrant. IMPRESSION: No definite acute abnormality is seen though the colonic pattern could indicate mild colitis, difficult to shahram luate. Clinical correlation is suggested. Signer Name: Adolfo Kline MD Signed: 03/31/2021 7:55 AM Workstation Name: [id number] Transcribed By: IVANNA Dictated By: Adolfo Kline MD Electronically Authenticated By: Adolfo Kline MD Signed Date/Time: 03/31/21754 DD/ 0 TD/TT: Print Cancel - Differential Diagnosis Gastroenteritis, small bowel obstruction, UTI, pyelonephritis, Critical care attestation.: If time is entered above; I have spent that time in minutes in the direct care of this critically ill patient, excluding procedure time. ED Disposition Clinical Impression: Intractable nausea and vomiting Disposition: OP ADMIT IP TO THIS HOSP Is pt being admited?: Yes Does the pt Need Aspirin: No Condition: Fair Referrals: PRIMARY CARE, [Primary Care Provider] - 3-5 Days Time of Disposition: 10:15 (Hospitalist paged (Dr Pruitt))
[2021-03-31 06:46] LABS: Bilirubin,Urine NEG (Negative); Blood,Urine NEG (Negative); Color,Urine Yellow (Yellow); Protein,Urine <15 mg/dL mg/dL (Negative); Urobilinogen,Urine < 2.0 mg/dL (<2.0); WBC,Urine < 1.0 /HPF (0.0-6.0)
[2021-03-31 07:11] LABS: Alanine Aminotransferase 43 units/L (7-56); Albumin 4.8 g/dL (3.9-5); Blood Urea Nitrogen 9 mg/dL (7-17); Calcium 9.5 mg/dL (8.4-10.2); Hemolysis Index 5
[2021-03-31 07:21] LABS: BUN/Creatinine Ratio 15
[2021-03-31 07:46] VITALS: BP 156/99
--- NOTE | 2021-03-31 08:00 | Cat Scan Report ---
CT ABDOMEN AND PELVIS WITH CONTRAST INDICATION: Lower abdominal pain, nausea, vomiting CONTRAST: 100 cc Omnipaque 300 IV COMPARISON: 02/21/[address] scans at this location are performed using CT dose reduction for ALARA by means of automated e xposure control. FINDINGS: Lung bases are clear. Small hernia is noted. Gallbladder and bile ducts appear within sol l limits. No masses are seen. No urinary obstructive changes are noted. Right ovarian cyst probably i s physiologic. No free fluid is seen. As on previous study, most of the colon is decompressed and difficult to evaluate. Mild wall edema is not excluded and mild colitis is possible though I do not see obvious surrounding inflammation. No s mall bowel wall thickening is seen. No evidence of bowel obstruction is noted. Appendix is partially visualized without definite abnormality. No inflammation is seen in the right lower quadrant. IMPRESSION: No definite acute abnormality is seen though the colonic pattern could indicate mild coli tis, difficult to evaluate. Clinical correlation is suggested. Signer Name: Adolfo Kline MD Signed: 03/31/2021 7:55 AM Workstation Name: [id number]
[2021-03-31] MEDS ORDERED: PROMETHAZINE 25 MG RECT SUPP PR ONE (08:29)
[2021-03-31] MEDS ORDERED: PROMETHAZINE 50 MG RECT SUPP PR ONE (08:50)
[2021-03-31] MEDS ORDERED: ONDANSETRON 4 MG/2 ML INJ IV PRN (12:22)
[2021-03-31] MEDS ORDERED: NALOXONE 0.4 MG/1 ML INJ IV PRN (12:22)
[2021-03-31] MEDS ORDERED: oxyCODONE /ACETAMINOPHEN 5-325MG TAB PO PRN (12:22)
[2021-03-31] MEDS ORDERED: ACETAMINOPHEN 325 MG TAB PO PRN (12:22)
[2021-03-31] MEDS ORDERED: MORPHINE 4 MG/1 ML INJ IV PRN (12:22)
[2021-03-31] MEDS ORDERED: METOCLOPRAMIDE 10 MG/2 ML INJ IV PRN (12:26)
[2021-03-31] MEDS ORDERED: BACLOFEN 10 MG TAB PO PRN (12:27)
[2021-03-31] MEDS ORDERED: SODIUM CHLORIDE 0.9% 1000 ML 1,000 ML IV SCH (12:30)
--- NOTE | 2021-03-31 12:34 | History and Physical Report ---
History of Present Illness Date of examination: 03/31/21 Date of admission: 03/31/21 10:18 Chief complaint: Nausea vomiting History of present illness: 30-year-old -[place] female with no past medical history presents with nausea and vomiting. Patient states that she started to have nausea vomiting last night after she wanted to eat at a restaurant and had shrimp. States that she vomited more than 10 times, no blood, yellow and bilious. Try to take Zo damaris, no relief. Patient also reports some diarrhea. Came to [facility] for evaluation, blood pressure stable, patient was given a multitude of antiemetics, continues to have nausea and vomiting. CT of abdomen with possible mild colitis. When I saw the patient she stated that she was drinking a little water and vomiting is decreasing. Past History Past Medical History: No medical history Past Surgical History: No surgical history Social history: no significant social history Family history: no significant family history Medications and Allergies Allergies Allergy/AdvReac Type Severity Reaction Status Date / Time No Known Allergies Allergy Verified 03/31/21 12:25 Home Medications Medication Instructions Recorded Confirmed Last Taken Type Ciprofloxacin HCl [Ciprofloxacin 500 mg PO Q12HR #14 tab 10/04/20 Unknown Rx TAB] metroNIDAZOLE [Flagyl] 500 mg PO Q8HR #21 tablet 10/04/20 Unknown Rx Ondansetron [Zofran Odt] 4 mg PO Q6HR PRN #20 tab.rapdis 12/25/20 Unknown Rx Dicyclomine [Bentyl] 20 mg PO Q6H PRN #30 tablet 02/22/21 Unknown Rx Ondansetron [Zofran ODT TAB] 4 mg PO Q4HR PRN #20 tab.rapdis 02/22/21 Unknown Rx Pantoprazole [Protonix TAB] 40 mg PO QDAY #30 tablet 02/22/21 Unknown Rx Promethazine [Phenergan SUPPOS] 25 mg [place] Q6HR PRN #20 supp.rect 02/22/21 Unknown Rx Active Meds: Active Medications Acetaminophen (Acetaminophen 325 Mg Tab) 650 mg PO Q4H PRN PRN Reason: Pain MILD(1-3)/Fever >100.5/JOYNER Baclofen (Baclofen 10 Mg Tab) 5 mg PO TID PRN PRN Reason: Hiccups Stop: 04/03/21 12:26 Heparin Sodium (Porcine) (Heparin 5,000 Unit/1 Ml Vial) 5,000 unit SUB-Q Q12HR DOV Sodium Chloride (Nacl 0.9% 1000 Ml) 1,000 mls @ 100 mls/hr IV DIRECT DOV Metoclopramide HCl (Metoclopramide 10 Mg/2 Ml Inj) 10 mg IV Q6H PRN PRN Reason: Nausea And Vomiting Morphine Sulfate (Morphine 4 Mg/1 Ml Inj) 4 mg IV Q4H PRN PRN Reason: Pain , Severe (7-10) Naloxone HCl (Naloxone 0.4 Mg/1 Ml Inj) 0.1 mg IV Q2MIN PRN PRN Reason: Res Rate </= 8 or 02 SAT < 92% Ondansetron HCl (Ondansetron 4 Mg/2 Ml Inj) 4 mg IV Q8H PRN PRN Reason: Nausea And Vomiting Oxycodone/Acetaminophen (Oxycodone /Acetaminophen 5-325mg Tab) 1 tab PO Q6H PRN PRN Reason: Pain, Moderate (4-6) Sodium Chloride (Sodium Chloride 0.9% 10 Ml Flush Syringe) 10 ml IV BID DOV Sodium Chloride (Sodium Chloride 0.9% 10 Ml Flush Syringe) 10 ml IV PRN PRN PRN Reason: LINE FLUSH Review of Systems All systems: negative Gastrointestinal: nausea, vomiting, diarrhea Exam - Physical Exam Narrative exam: General appearance: no acute distress, well-nourished EENT: PERRL, EOM intact, hearing intact, clear oral mucosa Neck: Present: supple, normal ROM Respiratory: bilateral CTA, negative: rales, rhonchi, wheezing Cardiovascular: Regular rate/rhythm, Normal S1 & S2. No gallop, rub Extremities: no ischemia, No edema, normal temperature, normal color, Full ROM Abdominal: soft, no tenderness, non-distended, normal bowel sounds Integumentary: Present: clear, warm, dry no wounds, no erythema noted Psychiatric: appropriate mood/affect, intact judgment & insight Neurologic: CNII-XII intact, moves all extremities, no sensory or motor abnormalities - Constitutional Vitals: Temp Pulse Resp BP Pulse Ox 98.2 F 116 H 16 156/99 100 03/31/21 05:23 03/31/21 07:46 03/31/21 07:46 03/31/21 07:46 03/31/21 07:46 Results - Labs CBC & Chem 7: 03/31/21 05:36 03/31/21 05:36 Labs: Laboratory Last Values WBC 10.1 K/mm3 (4.5-11.0) 03/31/21 05:36 RBC 4.84 M/mm3 (3.65-5.03) 03/31/21 05:36 Hgb 13.7 gm/dl (10.1-14.3) 03/31/21 05:36 Hct 39.7 % (30.3-42.9) 03/31/21 05:36 MCV 82 fl (79-97) 03/31/21 05:36 MCH 28 pg (28-32) 03/31/21 05:36 MCHC 34 % (30-34) 03/31/21 05:36 RDW 13.7 % (13.2-15.2) 03/31/21 05:36 Plt Count 428 K/mm3 (140-440) 03/31/21 05:36 Lymph % (Auto) 28.6 % (13.4-35.0) 03/31/21 05:36 [place] % (Auto) 4.9 % (0.0-7.3) 03/31/21 05:36 Eos % (Auto) 0.2 % (0.0-4.3) 03/31/21 05:36 Baso % (Auto) 1.2 % (0.0-1.8) 03/31/21 05:36 Lymph # (Auto) 2.9 K/mm3 (1.2-5.4) 03/31/21 05:36 [place] # (Auto) 0.5 K/mm3 (0.0-0.8) 03/31/21 05:36 Eos # (Auto) 0.0 K/mm3 (0.0-0.4) 03/31/21 05:36 Baso # (Auto) 0.1 K/mm3 (0.0-0.1) 03/31/21 05:36 Seg Neutrophils % 65.1 % (40.0-70.0) 03/31/21 05:36 Seg Neutrophils # 6.6 K/mm3 (1.8-7.7) 03/31/21 05:36 Sodium 142 mmol/L (137-145) 03/31/21 05:36 Potassium 3.8 mmol/L (3.6-5.0) 03/31/21 05:36 Chloride 102.1 mmol/L (98-107) 03/31/21 05:36 Carbon Dioxide 18 mmol/L (22-30) L 03/31/21 05:36 Anion Gap 26 mmol/L 03/31/21 05:36 BUN 9 mg/dL (7-17) 03/31/21 05:36 Creatinine 0.6 mg/dL (0.6-1.2) 03/31/21 05:36 Estimated GFR > 60 ml/min 03/31/21 05:36 BUN/Creatinine Ratio 15 % 03/31/21 05:36 Glucose 149 mg/dL (65-100) H 03/31/21 05:36 Calcium 9.5 mg/dL (8.4-10.2) 03/31/21 05:36 Total Bilirubin 0.30 mg/dL (0.1-1.2) 03/31/21 05:36 AST 29 units/L (5-40) 03/31/21 05:36 ALT 43 units/L (7-56) 03/31/21 05:36 Alkaline Phosphatase 96 units/L (35-129) 03/31/21 05:36 Total Protein 8.0 g/dL (6.3-8.2) 03/31/21 05:36 Albumin 4.8 g/dL (3.9-5) 03/31/21 05:36 Albumin/Globulin Ratio 1.5 % 03/31/21 05:36 Lipase 17 units/L (13-60) 03/31/21 05:41 HCG, Qual Negative (Negative) 03/31/21 05:41 Urine Color Yellow (Yellow) 03/31/21 06:28 Urine Turbidity Clear (Clear) 03/31/21 06:28 Urine pH 8.0 (5.0-7.0) H 03/31/21 06:28 Ur Specific [place] 1.015 (1.003-1.030) 03/31/21 06:28 Urine Protein <15 mg/dl mg/dL (Negative) 03/31/21 06:28 Urine Glucose (UA) Neg mg/dL (Negative) 03/31/21 06:28 Urine Ketones Tr mg/dL (Negative) 03/31/21 06:28 Urine Blood Neg (Negative) 03/31/21 06:28 Urine Nitrite Neg (Negative) 03/31/21 06:28 Urine Bilirubin Neg (Negative) 03/31/21 06:28 Urine Urobilinogen < 2.0 mg/dL (<2.0) 03/31/21 06:28 Ur Leukocyte Esterase Neg (Negative) 03/31/21 06:28 Urine WBC (Auto) < 1.0 /HPF (0.0-6.0) 03/31/21 06:28 Urine RBC (Auto) 1.0 /HPF (0.0-6.0) 03/31/21 06:28 U Epithel Cells (Auto) 2.0 /HPF (0-13.0) 03/31/21 06:28 Assessment and Plan Assessment and plan: 30-year-old -[place] female who presents with intractable nausea vomiting and diarrhea Intractable nausea and vomiting Fluids Zofran and Reglan Clear liquid diet We will repeat BMP, attempted advance diet Diarrhea If diarrhea continues, obtain stool studies. Intractable hiccups Baclofen as needed CODE STATUS: Full DVT prophylaxis: Heparin Disposition: Observe patient overnight, anticipate less than 48-hour stay in the hospital. Advance Directives: Yes VTE prophylaxis?: Chemical Plan of care discussed with patient/family: Yes
[2021-03-31] MEDS ORDERED: HEPARIN 5,000 UNIT/1 ML VIAL SUB-Q SCH (22:00)
--- NOTE | 2021-04-01 07:20 | Discharge Summary ---
Providers - Providers Date of Admission: 03/31/21 10:18 Date of discharge: 04/01/21 Attending physician: KAYLYNN JOHNSON MD Primary care physician: [employer]IST Hospitalization Reason for admission: Intractable nausea vomiting Condition: Undetermined Hospital course: 30-year-old -[place] female who presented with nausea and vomiting. Came to [facility],'s please see H&P from 03/31/2021. Was given antiemetics and fluids. Patient was supposed to be observed overnight, however patient left AMA from the ER on 03/31/2021. Disposition: DC-07 LEFT AGAINST MED ADVICE Final Discharge Diagnosis (Prints w/discharge instructions): Intractable nausea vomiting Time spent for discharge: 10 min Core Measure Documentation - Palliative Care Palliative Care/ Comfort Measures: Not Applicable - Core Measures Any of the following diagnoses?: none Exam - Physical Exam Narrative exam: Please see H&P - Constitutional Vitals: Temp Pulse Resp BP Pulse Ox 98.2 F 116 H 16 156/99 100 03/31/21 05:23 03/31/21 07:46 03/31/21 07:46 03/31/21 07:46 03/31/21 07:46 Plan
== END 2021-03-31 14:00 | disposition left against medical advice (07) ==
LOC: ED 05:09 → 3A 10:18
PROVIDERS: ADMIT Family Medicine; ATTEND Family Medicine
DX: R11.2 Nausea with vomiting, unspecified (principal); R19.7 Diarrhea, unspecified; R06.6 Hiccough; R10.30 Lower abdominal pain, unspecified
CPT/HCPCS: 36415; 74177; 80053; 81001; 83690; 84703; 85025; 96361; 96374; 96375; 99285; G0378; J0780; J2765; J7030; Q9967; Q0162